=== PATIENT | female | born 1985 | race Caucasian/White ===

== ENCOUNTER 2021-04-03 15:13 | Emergency (ER) | payer MEDICAID, SELFPAY ==
[2021-04-03 15:47] VITALS: BP 111/61; PULSE 87; RESP 18; TEMP 37; O2SAT 100; BMI 28.1
[2021-04-03 16:56] LABS: MANUAL DIFF FLAG NO
[2021-04-03 16:57] LABS: Basophils Percent Auto 0.1 % (0-2); Hematocrit 37.7 % (37.0-47.0); Hemoglobin 12.9 g/dl (12.0-16.0); Imm Gran Abs Auto 0.03 X10*3/uL (0.00-0.03); Imm Gran Pct Auto 0.3 % (0.0-0.4); Lymphocytes Percent Auto 8.9 % (20-40); Mean Corpuscular HGB Conc 34.2 g/dl (31.0-35.0); Mean Corpuscular Hemoglobin 30.9 pg (27.0-33.0); Mean Corpuscular Volume 90.2 fL (80.0-98.0); Mean Platelet Volume 10.3 fL (9.4-12.3); Monocytes Absolute Auto 0.4 X10*3/uL (0.1-1.2); Monocytes Percent Auto 3.5 % (2-11); Neutrophils Absolute Auto 9.8 x10*3/uL (2.0-8.3); Neutrophils Percent Auto 87.2 % (45-73); Platelet Count 241 X10*3/uL (160-400); Red Blood Count 4.18 X10*6/uL (4.20-5.50); Red Cell Distribution Width 12.4 % (11.0-16.0); White Blood Count 11.2 X10*3/uL (4.8-10.8)
[2021-04-03 16:59] LABS: Appearance Urine CLEAR; Color Urine YELLOW; Glucose Urine UA NEG (NEG); Leukocyte Esterase Urine NEG (NEG); Nitrite Urine NEG (NEG); UACC Culture Trigger NO; Urine Blood 3+ (NEG); Urine Ketones 5 MG/DL (NEG); Urine Protein TRACE MG/DL (NEG-TRACE)
[2021-04-03 17:03] LABS: UPreg QC Valid YES; Urine Pregnancy NEGATIVE (NEGATIVE)
[2021-04-03 17:10] LABS: COVID-19 Test Negative (Negative)
[2021-04-03 17:15] LABS: Alanine Aminotransferase 32 U/L (0-31); Albumin Level 4.6 g/dL (3.5-5.0); Alkaline Phosphatase 64 U/L (39-117); Anion Gap 15 (12-20); Aspartate Amino Transferase 24 U/L (5-31); Bilirubin Direct 0.2 mg/dL (0.0-0.5); Bilirubin Total 0.3 mg/dL (0.0-1.0); Blood Urea Nitrogen 9 mg/dL (9-16); Calcium 9.7 mg/dL (8.4-10.2); Carbon Dioxide 25 mmol/L (22-29); Chloride 102 mmol/L (96-108); Creatinine Clr Calc Pharmacy 101.9; Estimated Glomerular Filt Rate > 60; Glucose Random 111 mg/dL (60-115); Potassium 3.8 mmol/L (3.3-5.1); Sodium 138 mmol/L (135-145); Total Protein 7.7 g/dL (6.5-8.0)
[2021-04-03 17:51] LABS: Bacteria Urine 1+ /LPF; Mucus Urine 3+ /LPF; Squamous Epithelial Cell Urine 2+ /LPF; WBC Urine 0-2 /HPF (0-4)
[2021-04-03 21:33] VITALS: BP 136/72; PULSE 75; RESP 18; TEMP 36.9; O2SAT 100
== END 2021-04-03 22:14 | disposition left against medical advice (07) ==
PROVIDERS: Emergency Provider Emergency Medicine; PCP Internal Medicine Geriatric Medicine
DX: R10.9 Unspecified abdominal pain (principal); Z20.822 Contact with and (suspected) exposure to COVID-19
CPT/HCPCS: 36415; 80048; 80076; 81001; 81003; 81025; 85025; 87635; 99283

== ENCOUNTER 2021-04-04 07:58 | Inpatient (IN) | payer MEDICAID, SELFPAY ==
--- NOTE | ~2021-04-04 | CT_ITS ---
EXAMINATION: CT ABDOMEN AND PELVIS WITH CONTRAST CLINICAL INFORMATION: Enteritis COMPARISON: CT abdomen pelvis 04/04/2021 TECHNIQUE: Multidetector volumetric images were obtained from the superior aspect of the liver through the pubic symphysis following administration 85 mL of Omnipaque 350 intravenous contrast. Sagittal and coronal reformatted images were obtained on the technologist's workstation. Oral contrast: Yes This CT examination was performed using dose optimization techniques as appropriate, variously including the following: *Automated exposure control *Adjustment of mA and/or kV according to patient size (this includes techniques or standardized protocols for targeted exams where dose is matched to indication/reason for exam; i.e. extremities or head) *Use of iterative reconstruction technique DLP: 44 mGy-cm FINDINGS: LUNG BASES: The visualized lung bases are unremarkable. ABDOMINAL AND PELVIC WALL: Small fat-containing umbilical hernia. LIVER AND BILIARY TREE: Focal fat along the falciform ligament. GALLBLADDER: Unremarkable PANCREAS: Unremarkable SPLEEN: Unremarkable ADRENAL GLANDS: A 1.2 centimeter indeterminate left adrenal nodule, 63 Hounsfield units and homogeneous attenuation. KIDNEYS AND URETERS: Unremarkable. UPPER GASTROINTESTINAL TRACT: The stomach and duodenum are unremarkable. VASCULAR: Retroaortic left renal vein LYMPH NODES: No lymphadenopathy. BLADDER: Unremarkable PELVIC VISCERA: Unremarkable LOWER GASTROINTESTINAL TRACT: Interval resolution of the previously seen mildly dilated loops of small bowel. Enteric contrast is noted throughout the colon. There is a persistent clustered appearance of loops of small bowel in the left upper quadrant. Normal appendix. OSSEOUS STRUCTURES: Unremarkable CT/CT abdomen pelvis w con IMPRESSION: Interval resolution of previously seen dilated loops of small bowel compatible with resolved small bowel obstruction. There is a persistent clustered appearance of loops of small bowel in the left upper quadrant, which given prior findings of bowel obstruction could possibly reflect a left paraduodenal internal hernia if patient's clinical symptoms are appropriate. Stable 1.2 cm homogeneous left adrenal nodule. Assuming patient has no history of malignancy recommend one-year follow-up adrenal washout CT to assess stability.
--- NOTE | ~2021-04-04 | CT_ITS ---
EXAMINATION: CT ABDOMEN AND PELVIS WITH CONTRAST CLINICAL INFORMATION: Left lower quadrant pain COMPARISON: July 11, 2018 TECHNIQUE: Multidetector volumetric images were obtained from the superior aspect of the liver through the pubic symphysis following administration 85 mL of Omnipaque 350 intravenous contrast. Sagittal and coronal reformatted images were obtained on the technologist's workstation. Oral contrast: No This CT examination was performed using dose optimization techniques as appropriate, variously including the following: *Automated exposure control *Adjustment of mA and/or kV according to patient size (this includes techniques or standardized protocols for targeted exams where dose is matched to indication/reason for exam; i.e. extremities or head) *Use of iterative reconstruction technique DLP: 626 mGy-cm FINDINGS: LUNG BASES: The visualized lung bases are unremarkable. No pleural or pericardial effusion. LIVER, GALLBLADDER, AND BILIARY TREE: The liver is normal in size, shape, and attenuation. No focal hepatic lesion or biliary ductal dilatation is present. The gallbladder is unremarkable with no evidence of radiopaque gallstones, gallbladder wall thickening, or obvious pericholecystic inflammatory changes. PANCREAS: Unremarkable. SPLEEN: Unremarkable. ADRENAL GLANDS: There is a 1.2 cm left adrenal gland nodule. Right adrenal gland unremarkable. KIDNEYS AND URETERS: The kidneys are normal in size, shape, and attenuation. No hydronephrosis, hydroureter, or calculi seen. No perinephric stranding. There is a subcentimeter angiomyolipomas seen lower pole of the right kidney. BLADDER: Unremarkable. GASTROINTESTINAL TRACT: No free air or free fluid is seen. There is mild diverticulosis of the sigmoid colon without evidence of acute diverticulitis. No definite pericolonic inflammation is seen. The appendix is visualized and appears unremarkable. Within the left upper quadrant and mid abdomen there are a few loops of mildly distended small bowel with a matted appearance and difficulty in out fat planes. These loops appear to be jejunum. More distal loops of bowel are decompressed. I cannot rule out early or partial small bowel obstruction at this level and continued follow-up is recommended. ABDOMINAL WALL: There is a small fat-containing umbilical hernia. LYMPH NODES: No lymphadenopathy appreciated. VASCULAR: Unremarkable. PELVIC VISCERA: Unremarkable. OSSEOUS STRUCTURES: Unremarkable. CT/CT abdomen pelvis w con IMPRESSION: 1.2 cm left adrenal gland nodule. Region of loops of jejunum with a somewhat matted appearance with fat planes being obscured within the mid and upper left abdomen which may be related to an early or partial small bowel obstruction.
[2021-04-04 08:08] VITALS: BP 139/84; PULSE 86; RESP 16; TEMP 36.6; O2SAT 96
[2021-04-04 11:13] VITALS: BP 141/86; PULSE 80; RESP 18; TEMP 36.6; O2SAT 98; BMI 28.1
--- NOTE | 2021-04-04 13:32 | ED_ITS ---
HPI - Nausea/Vomiting/Diarrhea General Chief complaint: Nausea/Vomiting/Diarrhea Stated complaint: Vomiting Time Seen by Provider: 04/04/21 08:36 Source: patient Mode of arrival: ambulatory Limitations: no limitations History of Present Illness HPI Narrative: 35 yo F pmhx anxiety,migranes presents to the emergency d [facility] with complaints of abdominal pain, nausea and vomiting X2 days. Patient tells me that she is experiencing constant, aching pain to her left lower quadrant, she tells me it is severe in nature, she cannot tell me what exacerbates the pain or makes it better. She also tells me that she has been having associated anorexia, nausea and vomiting. She tells me each time she tries to eat she vomits, she tells me she has vomited so much that at this point she is dry heaving. Before she was vomiting food contents and a watery vomit. She tells me that she thinks she may have eaten something a few days ago that was bad because she started having abdominal pain after eating this, she does not remember what she ate. She can not quantify how many times she has vomited. Intermittent chills are reported. She denies diarrhea, chest pain, fevers, shortness of breath, headache, dizziness, weakness, back pain, dysuria. No hx of kidney stones or diverticulitis. MD elicited complaint: nausea, vomiting and abdominal pain Onset (ago): day(s) (2) Description of vomiting: watery Associated nausea: Yes Associated abdominal pain: Yes Location of pain: LLQ Pain consistency: constant Severity: severe Pain scale (0-10): 10 Quality: aching and constant Exacerbating factors: none Relieving factors: none Associated symptoms: fever/chills and fatigue Related Data Previous Rx's Medication Instructions Recorded ondansetron 4 mg disintegrating 4 mg PO ONCE PRN #10 tab 04/04/21 tablet Allergies Allergy/AdvReac Type Severity Reaction Status Date / Time No Known Allergies Allergy Unknown U Unverified 12/26/19 17:27 none Allergy Unknown Uncoded 12/31/18 00:00 Review of Systems Review of Systems: Constitutional : No Weight loss, No Fever, No Chills, + Fatigue, No Malaise ENT/Mouth : No sore throat, No Rhinorrhea Eyes: No Eye Pain, No Swelling, No Redness Cardiovascular : No Chest Pain, No SOB, No Dyspnea on Exertion, No Orthopnea, No Edema, No Palpitations Respiratory : No Cough, No Sputum, No Wheezing Gastrointestinal : + Nausea, + Vomiting, No Diarrhea, No Constipation, + abdominal Pain, No Hematochezia, No Melena Genitourinary : No Dysuria, No Urinary Frequency, No Hematuria, Musculoskeletal : No joint pain, No Myalgias, No Joint Swelling Skin : No Skin Lesions, No rash Neuro : No Weakness, No Numbness, No Dizziness, No Headache All other systems reviewed and are negative Yes all other systems are reviewed and are negative Gastrointestinal: Gastrointestinal: Reports nausea PMFSH Past Medical History Attestation statement: The following information was validated with the patient. Source: old records reviewed and nursing notes reviewed Medical History Anxiety Migraine Social History Social History Advance Directives: No Advance Directives Information Provided: No Patient : No Physical Exam Vital Signs: Vital Signs: Last Vital Signs Temp 98.3 F 04/04/21 15:15 Pulse 67 04/04/21 15:15 Resp 12 04/04/21 15:15 BP 114/59 L 04/04/21 15:15 Pulse Ox 100 04/04/21 15:15 BMI result Body Mass Index 28.1 VSS slightly hypertensive. Appearance: Alert.? Oriented X3.? No acute distress.? Head: Normocephalic, atraumatic, no step-offs or deformities Eyes: Pupils equal, round and reactive to light.? ENT: Pharynx normal.? Neck: Normal inspection.? Neck supple.? CVS: Normal heart rate and rhythm.? Pulses normal.? Respiratory: No respiratory distress.? Breath sounds normal.? Abdomen: Soft and + tender to LLQ.? Skin: Skin warm and dry.? Normal skin color.? Normal skin turgor.? Extremities: No lower extremity edema.? No calf ttp. 5/5 strength to bilateral upper and lower extremities Back: No midline tenderness, no C-spine tenderness, full range of motion, no CVA tenderness bilaterally Neuro: Oriented X 3.? No motor deficit.? No sensory deficit. Course Reevaluation(s) Reevaluation #1: Patient is noted to have slight leukocytosis, likely reactive secondary to nausea and vomiting. No acute electrolyte abnormalities. Urine negative. Patient's amylase and lipase are not elevated 3 times the upper limit, unlikely that this is pancreatitis. Patient reports that nausea has improved with Zofran. At this time in CT of the abdomen and pelvis is pending. Time: 16:48 Reevaluation #2: Ct shows possible partial obstruction and an adrenal nodule. Both of these findings discussed with patient. Will reach out to Dr. Marc surgery for guidance on need for an NG tube. Time: 18:23 Reevaluation #3: Patient is not feel comfortable being discharged home, she tells me that when she tries to eat and drink she is feeling nauseous. At this time Dr. Vigil states that he will admit patient to the surgical service. I ordered zofran and Toradol as well as a third liter of fluids. Time: 18:35 MDM - Nausea/Vomiting/Diarrhea MDM Narrative Medical decision making narrative: 1335 35 yo F pmhx anxiety, migranes presents to ED with LLQ abdominal pain, anorexia, N/V X2 days. Physical exam significant for tenderness to LLQ upon palpaiton. Plan- labs, fluids, zofran. CT abdomen/pelvis. Medical Records Attestation: I reviewed the patient's medical records. Lab Data Attestation: I reviewed the patient's lab results. Result diagrams: 04/04/21 14:00 04/04/21 14:27 Labs: Lab Results 04/04/21 04/04/21 04/04/21 Range/Units 13:15 14:00 14:27 WBC 11.2 H (4.8-10.8) X10*3/uL RBC 4.44 (4.20-5.50) X10*6/uL Hgb 13.8 (12.0-16.0) g/dl Hct 39.9 (37.0-47.0) % MCV 89.9 (80.0-98.0) fL MCH 31.1 (27.0-33.0) pg MCHC 34.6 (31.0-35.0) g/dl RDW 12.5 (11.0-16.0) % Plt Count 252 (160-400) X10*3/uL MPV 10.4 (9.4-12.3) fL Immature Gran % (Auto) 0.3 (0.0-0.4) % Neut % (Auto) 67.4 (45-73) % Lymph % (Auto) 24.0 (20-40) % [place] % (Auto) 7.2 (2-11) % Eos % (Auto) 0.8 (0-4) % Baso % (Auto) 0.3 (0-2) % Lymph # (Auto) 2.7 (1.2-4.9) X10*3/uL [place] # (Auto) 0.8 (0.1-1.2) X10*3/uL Eos # (Auto) 0.1 (0.0-0.4) X10*3/uL Baso # (Auto) 0.0 (0.0-0.2) X10*3/uL Abs Immat Gran (auto) 0.03 (0.00-0.03) X10*3/uL Absolute Neuts (auto) 7.6 (2.0-8.3) x10*3/uL Absolute Nucleated RBC 0.000 (0.0-0.012) X10*3/uL Nucleated RBC % (auto) 0.0 (0.0-0.2) /100WBC Sodium 140 (135-145) mmol/L Potassium 3.5 (3.3-5.1) mmol/L Chloride 104 (96-108) mmol/L Carbon Dioxide 27 (22-29) mmol/L Anion Gap 13 (12-20) BUN 14 D (9-16) mg/dL Creatinine 0.89 (0.5-1.4) mg/dL Estim Creat Clear Calc 95.1 Estimated GFR > 60 Random Glucose 90 (60-115) mg/dL Calcium 9.5 (8.4-10.2) mg/dL Magnesium 2.1 (1.6-2.6) mg/dL Total Bilirubin 0.4 (0.0-1.0) mg/dL AST 26 (5-31) U/L ALT 30 (0-31) U/L Alkaline Phosphatase 60 (39-117) U/L Total Protein 7.6 (6.5-8.0) g/dL Albumin 4.6 (3.5-5.0) g/dL Amylase 116 H (28-100) U/L Lipase 177 H (8-78) U/L Beta HCG, Quant < 2 mIU/mL COVID-19 (ALEX) Negative (Negative) COVID-19 Clin Com See Note Imaging Data CT scan - abdomen: Attestation: I personally reviewed and interpreted this imaging study as follows: Radiologist's impression: CT/CT abdomen pelvis w con IMPRESSION: 1.2 cm left adrenal gland nodule. ? Region of loops of jejunum with a somewhat matted appearance with fat planes being obscured within the mid and upper left abdomen which may be related to an early or partial small bowel obstruction. ? Critical Care Time Critical Care Time Critical Care Time: Yes Total Critical Care Time: 40 Attestation: I attest to this time spent taking care of the patient, obtaining history/p hysical, starting an IV, administering fluids, interpreting labs and imaging, reaching out to surgery for consultation. Discharge Plan Discharge Clinical Impression: Partial bowel obstruction, Adrenal nodule, Nausea & vomiting Patient Disposition: Admitted As Inpatient Instructions: Acute Nausea and Vomiting (ED) Additional Instructions: Take your medications as prescribed. If you were prescribed antibiotics today, it is important that you take your medication to their entirety, do not skip any doses, do not finish them early. Follow-up with your primary care provider this week. A nodule was noted to the left adrenal gland on CT, please follow up with your PCT to discuss this finding. Return to the emergency department with new or worsening symptoms. In case of emergency call 911 Prescriptions: New ondansetron 4 mg tablet,disintegrating 4 mg PO ONCE PRN (Reason: nausea and vomiting) Qty: 10 RF: 0 Referrals: Name,MD Tobin [Primary Care Provider] - 2 days Stand Alone Forms: Work/School Release
[2021-04-04 13:42] LABS: COVID-19 Test Negative (Negative)
[2021-04-04 14:05] LABS: MANUAL DIFF FLAG NO
[2021-04-04 14:07] LABS: Basophils Percent Auto 0.3 % (0-2); Eosinophils Absolute Auto 0.1 X10*3/uL (0.0-0.4); Eosinophils Percent Auto 0.8 % (0-4); Hematocrit 39.9 % (37.0-47.0); Hemoglobin 13.8 g/dl (12.0-16.0); Imm Gran Abs Auto 0.03 X10*3/uL (0.00-0.03); Imm Gran Pct Auto 0.3 % (0.0-0.4); Lymphocytes Absolute Auto 2.7 X10*3/uL (1.2-4.9); Mean Corpuscular HGB Conc 34.6 g/dl (31.0-35.0); Mean Corpuscular Hemoglobin 31.1 pg (27.0-33.0); Mean Corpuscular Volume 89.9 fL (80.0-98.0); Mean Platelet Volume 10.4 fL (9.4-12.3); Monocytes Absolute Auto 0.8 X10*3/uL (0.1-1.2); Monocytes Percent Auto 7.2 % (2-11); Neutrophils Absolute Auto 7.6 x10*3/uL (2.0-8.3); Neutrophils Percent Auto 67.4 % (45-73); Platelet Count 252 X10*3/uL (160-400); Red Blood Count 4.44 X10*6/uL (4.20-5.50); Red Cell Distribution Width 12.5 % (11.0-16.0); White Blood Count 11.2 X10*3/uL (4.8-10.8)
[2021-04-04] MEDS: ondansetron HCL 4 MG/2 ML VIAL IVPUSH ×2 (14:52→19:56)
[2021-04-04] MEDS: 0.9 % Sodium Chloride 1,000 ML 999 ML IV ×2 (14:52→16:16)
[2021-04-04 14:59] LABS: Alanine Aminotransferase 30 U/L (0-31); Albumin Level 4.6 g/dL (3.5-5.0); Alkaline Phosphatase 60 U/L (39-117); Anion Gap 13 (12-20); Aspartate Amino Transferase 26 U/L (5-31); Bilirubin Total 0.4 mg/dL (0.0-1.0); Blood Urea Nitrogen 14 mg/dL (9-16); Calcium 9.5 mg/dL (8.4-10.2); Carbon Dioxide 27 mmol/L (22-29); Chloride 104 mmol/L (96-108); Creatinine Clr Calc Pharmacy 95.1; Estimated Glomerular Filt Rate > 60; Glucose Random 90 mg/dL (60-115); Magnesium 2.1 mg/dL (1.6-2.6); Potassium 3.5 mmol/L (3.3-5.1); Sodium 140 mmol/L (135-145); Total Protein 7.6 g/dL (6.5-8.0)
[2021-04-04 15:15] VITALS: BP 114/59; PULSE 67; RESP 12; TEMP 36.8; O2SAT 100
[2021-04-04 15:28] LABS: HCG Quantitative < 2 mIU/mL
[2021-04-04 15:58] LABS: Lipase 177 U/L (8-78)
[2021-04-04 16:17] LABS: Amylase 116 U/L (28-100)
[2021-04-04] MEDS: iohexoL 350 MG/ML 100 ML INFUS..BTL 85 ML IV (16:20)
[2021-04-04 19:47] VITALS: BP 118/61; PULSE 58; RESP 16; TEMP 36.8; O2SAT 100
[2021-04-04] MEDS: Ketorolac Tromethamine 30 MG/ML VIAL IVPUSH (19:56)
[2021-04-04] MEDS: 0.9 % Sodium Chloride 1,000 ML 100 ML IVCONT (19:57)
--- NOTE | 2021-04-04 20:44 | PC.NURSE ---
assumed care of pt at 1900, multiple medications not given d/t high pt number, low nursing ratio. pt medicated per jun. pt informed of NPO status and made aare of plan to admit to the hosptial, she is awaiting inpatient bed assignement.
[2021-04-05] MEDS: Morphine Sulfate 2 MG/ML CARTRIDGE IVPUSH ×3 (02:49→13:36)
--- NOTE | 2021-04-05 03:01 | PC.NURSE ---
Pt a&o, no sob or chest pain. medicated per Jun.
[2021-04-05 04:51] VITALS: BP 110/51; PULSE 67; RESP 16; TEMP 36.8; O2SAT 100
[2021-04-05] MEDS: 0.9 % Sodium Chloride 1,000 ML 100 ML IVCONT ×2 (04:56→18:32)
--- NOTE | 2021-04-05 04:58 | PC.NURSE ---
pt medicated per mar. no n/v. no sign of distress at this time.
[2021-04-05 07:10] LABS: Hematocrit 33.8 % (37.0-47.0); Hemoglobin 11.4 g/dl (12.0-16.0); Mean Corpuscular HGB Conc 33.7 g/dl (31.0-35.0); Mean Corpuscular Hemoglobin 30.8 pg (27.0-33.0); Mean Corpuscular Volume 91.4 fL (80.0-98.0); Mean Platelet Volume 10.6 fL (9.4-12.3); Platelet Count 188 X10*3/uL (160-400); Red Cell Distribution Width 12.4 % (11.0-16.0); White Blood Count 7.9 X10*3/uL (4.8-10.8)
[2021-04-05 07:39] LABS: Anion Gap 9 (12-20); Blood Urea Nitrogen 12 mg/dL (9-16); Calcium 8.2 mg/dL (8.4-10.2); Carbon Dioxide 25 mmol/L (22-29); Chloride 109 mmol/L (96-108); Creatinine Clr Calc Pharmacy 111.4; Estimated Glomerular Filt Rate > 60; Glucose Random 78 mg/dL (60-115); Potassium 3.7 mmol/L (3.3-5.1); Sodium 139 mmol/L (135-145)
[2021-04-05 07:42] VITALS: BP 104/48; PULSE 61; RESP 16; TEMP 36.7; O2SAT 99
--- NOTE | 2021-04-05 08:38 | P.HPGS_ITS ---
History of Present Illness History of Present Illness Date of Service: 04/05/21 <Emmy Ruiz PA-C - Last Filed: 04/05/21 09:13> 04/05/21 <Ramon Marc MD - Last Filed: 04/05/21 10:18> Chief complaint: abdominal pain <Emmy Ruiz PA-C - Last Filed: 04/05/21 09:13> Narrative: Nica Marc is a 35 year old female with PMH of anxiety, asthma who presented to the ED with complaints of LUQ abd pain. She reports the pain actually started on 04/03. She was having Cristal dinner and shortly after developed the LUQ pain with nausea and multiple episodes of vomiting. The pain waxes and wanes in severity but is sharp in nature. She presented to the ED that day but was not seen for several hours and left. The pain persisted at home and she decided to come to the ED again yesterday. She reports last passing flatus yesterday. She has not vomited since yesterday. She denies fever, chills, rhett rrhea, abdominal distention. She had a tubal ligation but denies any other abdominal surgeries. She denies sick contacts with similar symptoms, prior episodes of similar pain. Work up in the ED included a CT scan which showed mildly distended small bowel in the LUQ with a matted appearance with distal loops of bowel are decompressed. <Emmy Ruiz PA-C - Last Filed: 04/05/21 09:13> Review of Systems Constitutional: Constitutional: Denies chills, Denies fever(s) and Denies malaise <Emmy Ruiz PA-C - Last Filed: 04/05/21 09:13> Cardiovascular: Cardiovascular: Denies chest pain, Denies palpitations and Denies dyspnea <EDU Gillis Last Filed: 04/05/21 09:13> Respiratory: Respiratory: Denies cough and Denies dyspnea <EDU Gillis Last Filed: 04/05/21 09:13> Gastrointestinal: Gastrointestinal: Reports as per HPI, Denies change in bowel habits, Denies coffee ground emesis and Denies hematemesis <EDU Gillis Last Filed: 04/05/21 09:13> Genitourinary: Genitourinary: Denies hematuria and Denies dysuria <Emmy Ruiz PA-C - Last Filed: 04/05/21 09:13> Integumentary/Breasts: Skin/Breast: Denies rash <Emmy Ruiz PA-C - Last Filed: 04/05/21 09:13> Endocrine: Endocrine: Denies palpitations <Emmy Ruiz PA-C - Last Filed: 04/05/21 09:13> [facility] [place] Past Medical History Medical History: Medical History (Updated 04/05/21 @ 09:09 by Emmy Ruiz PA-C) Anxiety Asthma Migraine <Emmy Ruiz PA-C - Last Filed: 04/05/21 09:13> Surgical History Surgical History: Surgical History (Updated 04/05/21 @ 09:07 by Emmy Ruiz PA-C) History of ankle surgery Tubal ligation status <Emmy Ruiz PA-C - Last Filed: 04/05/21 09:13> Social History Social History: Social History Patient Tobacco Use Status: Current everyday Tobacco user Use of substances other than those prescribed or required for medical reasons: No Advance Directives: No Advance Directives Information Provided: No Patient : No <Emmy Ruiz PA-C - Last Filed: 04/05/21 09:13> Meds Allergies/Adverse reactions: Allergies Allergy/AdvReac Type Severity Reaction Status Date / Time No Known Allergies Allergy Unknown U Unverified 12/26/19 17:27 none Allergy Unknown Uncoded 12/31/18 00:00 <Emmy Ruiz PA-C - Last Filed: 04/05/21 09:13> Active Medications: Current Medications Sodium Chloride (Ns) 1,000 mls @ 100 mls/hr IVCONT .Q10H MERRITT Last Admin: 04/05/21 04:56 Dose: 100 mls/hr Documented by: Morphine Sulfate (Morphine Sulfate 2 Mg/Ml Cartridge) 2 mg IVPUSH Q4H PRN; Protocol PRN Reason: Pain, Severe (Pain Scale 7-10) Last Admin: 04/05/21 02:49 Dose: 2 mg Documented by: Ondansetron HCl (Ondansetron Hcl 4 Mg/2 Ml Vial) 4 mg IVPUSH Q8H PRN PRN Reason: nausea Pharmacy Consult (Consult Rx Perform Med Rec) 1 each MISCELLANE ONCE PRN PRN Reason: Consult order Sodium Chloride (0.9 % Sodium Chloride Flush 3 Ml Syringe) 3 ml IVFLUSH QSHIFT [facility] Last Admin: 04/05/21 02:51 Dose: Not Given Documented by: <EDU Gillis Last Filed: 04/05/21 09:13> Home medications: Home Medications Medication Instructions Recorded Confirmed Last Taken Type lorazepam 0.5 mg tablet 1 tab PO DAILY PRN 04/05/21 04/05/21 04/04/21 History <EDU Gillis Last Filed: 04/05/21 09:13> Physical Exam Vital Signs: Vital Signs: Last Vital Signs Temp 98.0 F 04/05/21 07:42 Pulse 61 04/05/21 07:42 Resp 16 04/05/21 07:42 BP 104/48 L 04/05/21 07:42 Pulse Ox 99 04/05/21 07:42 BMI result Body Mass Index 28.1 <EDU Gillis Last Filed: 04/05/21 09:13> Const: General: comfortable, no acute distress and alert <EDU Gillis Last Filed: 04/05/21 09:13> Orientation/consciousness: patient oriented x3 <EDU Gillis Last Filed: 04/05/21 09:13> Resp: Effort & Inspection: normal respiratory effort <EDU Gillis Last Filed: 04/05/21 09:13> Cardio: Rate: regular rate <EDU Gillis Last Filed: 04/05/21 09:13> GI: Inspection: Yes normal to inspection and No distended <EDU Mayfield Last Filed: 04/05/21 09:13> Palpation (GI): Soft to palpation, Tenderness to palpation present (GI) in the LUQ (mild), no guarding and not rigid <EDU Gillis Last Filed: 04/05/21 09:13> Percussion: Yes normal to percussion <EDU Gillis Last Filed: 04/05/21 09:13> Skin: General skin exam: no rashes or lesions noted <EDU Gillis Last Filed: 04/05/21 09:13> Neuro: General: patient oriented x3 <EDU Gillis Last Filed: 04/05/21 09:13> Extrem: General: Yes no clubbing, cyanosis or edema <EDU Gillis Last Filed: 04/05/21 09:13> Results Results Labs: Short CBC 04/04/21 04/05/21 Range/Units 14:00 06:45 WBC 11.2 H 7.9 (4.8-10.8) X10*3/uL Hgb 13.8 11.4 L (12.0-16.0) g/dl Hct 39.9 33.8 L (37.0-47.0) % Plt Count 252 188 D (160-400) X10*3/uL BMP 04/04/21 04/05/21 14:27 06:45 Sodium 140 139 Potassium 3.5 3.7 Chloride 104 109 H Carbon Dioxide 27 25 BUN 14 D 12 Creatinine 0.89 0.76 Calcium 9.5 8.2 L D Liver Function 04/04/21 Range/Units 14:27 Total Bilirubin 0.4 (0.0-1.0) mg/dL AST 26 (5-31) U/L ALT 30 (0-31) U/L Alkaline Phosphatase 60 (39-117) U/L Albumin 4.6 (3.5-5.0) g/dL <EDU Gillis Last Filed: 04/05/21 09:13> Assessment and Plan (1) Enteritis: Status: Acute <EDU Gillis Last Filed: 04/05/21 09:13> She has tenderness on the left upper quadrant A little better today CT scan reviewed - some thickening of jejunal loops in the left upper quadrant with poor planes suggestive of enteritis Good air distally Abdomen soft and benign NPO IV fluids Plan explained to patient Seen and examined - agree with TEO Ruiz <Ramon Marc MD - Last Filed: 04/05/21 10:18> 35 year old female admitted with LUQ abd pain and vomiting for 2 days. She is mildly tender in the LUQ. Review of the CT scan showed thickening of small bowel loops more consistent with enteritis. She is clinically not obstructed as her abdomen is soft, non distended and she reports passing flatus. The patient was admitted to the surgical service for further treatment. She is non toxic appearing with a benign abd exam. Will continue IVF, bowel rest for now and advance diet slowly as tolerated. Pain control. Encouraged OOB/ambulation today. Patient comfortable with plan. Patient seen and discussed with Dr. Marc. <Emmy Ruiz PA-C - Last Filed: 04/05/21 09:13> Quality Stroke Does the patient have a stroke diagnosis?: No <Emmy Ruiz PA-C - Last Filed: 04/05/21 09:13> VTE Prior VTE?: No <Emmy Ruiz PA-C - Last Filed: 04/05/21 09:13> VTE Risk Level:: Medical - low <Emmy Ruiz PA-C - Last Filed: 04/05/21 09:13> VTE Device Contraindication: Treatment Not Indicated <Emmy Ruiz PA-C - Last Filed: 04/05/21 09:13> VTE Drug Contraindication: Treatment Not Indicated <Emmy Ruiz PA-C - Last Filed: 04/05/21 09:13> Procedures Date of Service Date of Service: 04/05/21 <Emmy Ruiz PA-C - Last Filed: 04/05/21 09:13>
--- NOTE | 2021-04-05 08:40 | PHA.MEDREC ---
Pharmacy Consult ? Medication Reconciliation Pharmacy has completed the medication reconciliation Spoke with patient in the ED. .
--- NOTE | 2021-04-05 09:09 | PC.NURSE ---
PTUP TO BR.C/O H/A. MED PER JUN.
[2021-04-05] MEDS: Acetaminophen 325 MG TABLET 650 MG PO (13:36)
--- NOTE | 2021-04-05 14:47 | MHC.CM.PN ---
pt lives in [address] her son, she reports that she is independent in her care. she works a job and drives a car. pt does have family that live in the area and can help her should she have any needs . family will provide transportation at dc. pt does not use any AD c ambulation and has no svcs at home. pt denies the need for vna at dc. dc plan is home no svcs. cm to cont. to follow.
[2021-04-05 15:45] VITALS: BP 100/58; PULSE 55; RESP 18; TEMP 36.9; O2SAT 100
[2021-04-05 16:00] VITALS: BP 124/72; PULSE 54; RESP 18; TEMP 36.6; O2SAT 97
[2021-04-05] MEDS: 0.9 % Sodium Chloride Flush 3 ML SYRINGE IVFLUSH (18:33)
[2021-04-05 19:27] VITALS: BP 122/71; PULSE 65; RESP 18; TEMP 36.2; O2SAT 100
[2021-04-06 00:17] VITALS: BP 125/61; PULSE 65; RESP 18; TEMP 36.6; O2SAT 98
[2021-04-06 00:19] VITALS: RESP 18
[2021-04-06] MEDS: Morphine Sulfate 2 MG/ML CARTRIDGE IVPUSH ×2 (00:19→09:00)
[2021-04-06] MEDS: 0.9 % Sodium Chloride 1,000 ML 100 ML IVCONT ×3 (04:29→22:50)
[2021-04-06 08:00] VITALS: BP 132/69; PULSE 63; RESP 16; TEMP 36.6; O2SAT 100
--- NOTE | 2021-04-06 08:03 | P.PNGS_ITS ---
Subjective Subjective Date of Service: 04/06/21 <Emmy Ruiz PA-C - Last Filed: 04/06/21 08:05> 04/06/21 <Ramon Marc MD - Last Filed: 04/06/21 11:16> Interval history: Feeling a little better. Pain improved. Passing flatus. Feels hungry. <Emmy Ruiz PA-C - Last Filed: 04/06/21 08:05> Physical Exam Vital Signs: Vital Signs: Last Vital Signs Temp 98 F 04/06/21 00:17 Pulse 65 04/06/21 00:17 Resp 18 04/06/21 00:19 BP 125/61 04/06/21 00:17 Pulse Ox 98 04/06/21 00:17 BMI result Body Mass Index 28.1 <mEmy Ruiz PA-C - Last Filed: 04/06/21 08:05> Const: General: comfortable and no acute distress <SABAS Gillis - Last Filed: 04/06/21 08:05> Orientation/consciousness: patient oriented x3 <Emmy Ruiz PA-C - Last Filed: 04/06/21 08:05> Resp: Effort & Inspection: normal respiratory effort <EDU Gillis Last Filed: 04/06/21 08:05> GI: Inspection: Yes normal to inspection and No distended <Emmy Ruzi PA-C - Last Filed: 04/06/21 08:05> Palpation (GI): Soft to palpation, Tenderness to palpation present (GI) (mild, LUQ) and no guarding <Emmy Ruiz PA-C - Last Filed: 04/06/21 08:05> Percussion: Yes normal to percussion <Emmy Ruiz PA-C - Last Filed: 04/06/21 08:05> Skin: General skin exam: no rashes or lesions noted <EDU Gillis Last Filed: 04/06/21 08:05> Neuro: General: patient oriented x3 <EDU Gillis Last Filed: 04/06/21 08:05> Objective Data Active Medications Acetaminophen (Acetaminophen 325 Mg Tablet) 650 mg PO Q6H PRN PRN Reason: Pain, Mild (Pain Scale 1-3) Last Admin: 04/05/21 13:36 Dose: 650 mg Documented by: JUAN Sodium Chloride (Ns) 1,000 mls @ 100 mls/hr IVCONT .Q10H [facility] Last Admin: 04/06/21 04:29 Dose: 100 mls/hr Documented by: WILLARD Morphine Sulfate (Morphine Sulfate 2 Mg/Ml Cartridge) 2 mg IVPUSH Q4H PRN; Protocol PRN Reason: Pain, Severe (Pain Scale 7-10) Last Admin: 04/06/21 00:19 Dose: 2 mg Documented by: WILLARD Ondansetron HCl (Ondansetron Hcl 4 Mg/2 Ml Vial) 4 mg IVPUSH Q8H PRN PRN Reason: nausea Oxycodone HCl (Oxycodone Hcl Immed Release 5 Mg Tablet) 5 mg PO Q4H PRN PRN Reason: Pain, Moderate (Pain Scale 4-6 Pharmacy Consult (Consult Rx Perform Med Rec) 1 each MISCELLANE ONCE PRN PRN Reason: Consult order Sodium Chloride (0.9 % Sodium Chloride Flush 3 Ml Syringe) 3 ml IVFLUSH QSHIFT [facility] Last Admin: 04/05/21 18:33 Dose: 3 ml Documented by: MOHINDER <Emmy Ruiz PA-C - Last Filed: 04/06/21 08:05> Labs CBC & Chem 7: : 04/05/21 06:45 04/05/21 06:45 <Emmy Ruiz PA-C - Last Filed: 04/06/21 08:05> Procedures Date of Service Date of Service: 04/06/21 <Emmy Ruiz PA-C - Last Filed: 04/06/21 08:05> Progress Note: A&P Assessment and plan (1) Enteritis: Status: Acute <Emmy Ruiz PA-C - Last Filed: 04/06/21 08:05> Assessment and Plan: feels much better still with pain but much improved passing flatus no vomiting clear liquids today abdomen remains soft and benign seen and examined - agree with TEO Ruiz <Ramon Marc MD - Last Filed: 04/06/21 11:16> Assessment and Plan: 35 year old female admitted with abd pain, nausea and vomiting found to have enteritis on CT scan. Patient feels improved with supportive measures. Will advance to clear liquid diet and then further as tolerated. Patient comfortable with plan. <Emmy Ruiz PA-C - Last Filed: 04/06/21 08:05> Fall Risk Details Current Medications: Current Medications Acetaminophen (Acetaminophen 325 Mg Tablet) 650 mg PO Q6H PRN PRN Reason: Pain, Mild (Pain Scale 1-3) Last Admin: 04/05/21 13:36 Dose: 650 mg Documented by: Sodium Chloride (Ns) 1,000 mls @ 100 mls/hr IVCONT .Q10H [facility] Last Admin: 04/06/21 04:29 Dose: 100 mls/hr Documented by: Morphine Sulfate (Morphine Sulfate 2 Mg/Ml Cartridge) 2 mg IVPUSH Q4H PRN; Pr otocol PRN Reason: Pain, Severe (Pain Scale 7-10) Last Admin: 04/06/21 00:19 Dose: 2 mg Documented by: Ondansetron HCl (Ondansetron Hcl 4 Mg/2 Ml Vial) 4 mg IVPUSH Q8H PRN PRN Reason: nausea Oxycodone HCl (Oxycodone Hcl Immed Release 5 Mg Tablet) 5 mg PO Q4H PRN PRN Reason: Pain, Moderate (Pain Scale 4-6 Pharmacy Consult (Consult Rx Perform Med Rec) 1 each MISCELLANE ONCE PRN PRN Reason: Consult order Sodium Chloride (0.9 % Sodium Chloride Flush 3 Ml Syringe) 3 ml IVFLUSH QSHIFT [facility] Last Admin: 04/05/21 18:33 Dose: 3 ml Documented by: <Emmy Ruiz PA-C - Last Filed: 04/06/21 08:05> Time Spent With Patient Time: Total time spent is greater than 50% in coordination of care (as documented) at patient's floor/unit and/or counseling patient: <Emmy Ruiz PA-C - Last Filed: 04/06/21 08:05> Time with patient: 15 - 24 minutes <Emmy Ruiz PA-C - Last Filed: 04/06/21 08:05> Quality Stroke Does the patient have a stroke diagnosis?: No <Emmy Ruiz PA-C - Last Filed: 04/06/21 08:05> VTE Prior VTE?: No <Emmy Ruiz PA-C - Last Filed: 04/06/21 08:05> VTE Risk Level:: Medical - low <Emmy Ruiz PA-C - Last Filed: 04/06/21 08:05> VTE Device Contraindication: Treatment Not Indicated <Emmy Ruiz PA-C - Last Filed: 04/06/21 08:05> VTE Drug Contraindication: Treatment Not Indicated <Emmy Ruiz PA-C - Last Filed: 04/06/21 08:05>
[2021-04-06 16:00] VITALS: BP 134/78; PULSE 57; RESP 18; TEMP 36.7; O2SAT 100
[2021-04-06] MEDS: oxyCODONE HCl Immed Release 5 MG TABLET PO ×2 (17:29→22:17)
[2021-04-06 23:54] VITALS: BP 147/84; PULSE 55; RESP 17; TEMP 36.9; O2SAT 100
[2021-04-07] MEDS: oxyCODONE HCl Immed Release 5 MG TABLET PO ×4 (03:19→22:14)
[2021-04-07 07:58] VITALS: BP 136/74; PULSE 54; RESP 18; TEMP 36.3; O2SAT 100
[2021-04-07 08:00] VITALS: BP 136/71; PULSE 54; RESP 18; TEMP 36.3; O2SAT 100
[2021-04-07] MEDS: 0.9 % Sodium Chloride 1,000 ML 100 ML IVCONT (08:04)
[2021-04-07] MEDS: Morphine Sulfate 2 MG/ML CARTRIDGE IVPUSH (11:54)
--- NOTE | 2021-04-07 11:55 | P.PNGS_ITS ---
Subjective Subjective Date of Service: 04/07/21 <Emmy Ruiz PA-C - Last Filed: 04/07/21 11:58> 04/07/21 <Ramon Marc MD - Last Filed: 04/07/21 12:58> Interval history: Advanced to solid food this morning. Had some nausea following breakfast. Has been ambulating. Passing flatus. Some pain but well controlled with oxycodone. <Emmy Ruiz PA-C - Last Filed: 04/07/21 11:58> Physical Exam Vital Signs: Vital Signs: Last Vital Signs Temp 97.4 F 04/07/21 08:00 Pulse 54 04/07/21 08:00 Resp 18 04/07/21 08:00 BP 136/71 04/07/21 08:00 Pulse Ox 100 04/07/21 08:00 BMI result Body Mass Index 28.1 <Emmy Ruiz PA-C - Last Filed: 04/07/21 11:58> Const: General: no acute distress and alert <Emmy Ruiz PA-C - Last Filed: 04/07/21 11:58> Orientation/consciousness: patient oriented x3 <Emmy Ruiz PA-C - Last Filed: 04/07/21 11:58> GI: Inspection: Yes normal to inspection and No distended <Emmy Ruiz PA-C - Last Filed: 04/07/21 11:58> Palpation (GI): Soft to palpation, Tenderness to palpation present (GI) in the LUQ and no guarding <Emmy Ruiz PA-C - Last Filed: 04/07/21 11:58> Percussion: Yes normal to percussion <Emmy Ruiz PA-C - Last Filed: 04/07/21 11:58> Skin: General skin exam: no rashes or lesions noted <Emmy Ruiz PA-C - Last Filed: 04/07/21 11:58> Neuro: General: patient oriented x3 <Emmy Ruiz PA-C - Last Filed: 04/07/21 11:58> Extrem: General: Yes no clubbing, cyanosis or edema <Emmy Ruiz PA-C - Last Filed: 12/29/21 11:58> Objective Data Active Medications Acetaminophen (Acetaminophen 325 Mg Tablet) 650 mg PO Q6H PRN PRN Reason: Pain, Mild (Pain Scale 1-3) Last Admin: 04/05/21 13:36 Dose: 650 mg Documented by: JUAN Sodium Chloride (Ns) 1,000 mls @ 100 mls/hr IVCONT .Q10H [facility] Last Admin: 04/07/21 08:04 Dose: 100 mls/hr Documented by: CAREY Morphine Sulfate (Morphine Sulfate 2 Mg/Ml Cartridge) 2 mg IVPUSH Q4H PRN; Protocol PRN Reason: Pain, Severe (Pain Scale 7-10) Last Admin: 04/07/21 11:54 Dose: 2 mg Documented by: CAREY Ondansetron HCl (Ondansetron Hcl 4 Mg/2 Ml Vial) 4 mg IVPUSH Q8H PRN PRN Reason: nausea Oxycodone HCl (Oxycodone Hcl Immed Release 5 Mg Tablet) 5 mg PO Q4H PRN PRN Reason: Pain, Moderate (Pain Scale 4-6 Last Admin: 04/07/21 08:09 Dose: 5 mg Documented by: CAREY Pharmacy Consult (Consult Rx Perform Med Rec) 1 each MISCELLANE ONCE PRN PRN Reason: Consult order Sodium Chloride (0.9 % Sodium Chloride Flush 3 Ml Syringe) 3 ml IVFLUSH QSHIFT [facility] Last Admin: 04/07/21 08:04 Dose: Not Given Documented by: CAREY Non-Admin Reason: IV Running <Emmy Ruiz PA-C - Last Filed: 04/07/21 11:58> Labs CBC & Chem 7: : 04/05/21 06:45 04/05/21 06:45 <Emmy Ruiz PA-C - Last Filed: 04/07/21 11:58> Procedures Date of Service Date of Service: 04/07/21 <EDU Gillis Last Filed: 04/07/21 11:58> Progress Note: A&P Assessment and plan (1) Enteritis: Status: Acute <EDU Gillis Last Filed: 04/07/21 11:58> Assessment and Plan: feels better minimal pain abdomen soft, not tender possible DC if she continues to tolerate diet seen and examined - agree with TEO Ruiz plan discussed with as well <Ramon Marc MD - Last Filed: 04/07/21 12:58> Assessment and Plan: 35 year old female admitted with abd pain, nausea and vomiting found to have enteritis on CT scan. Patient feels improved with supportive measures. On solid diet now. Will reassess later today. If tolerating solid food without further nausea/vomiting or worsening pain, stable for d/c to home. D/c IVF. Patient comfortable with plan. <Emmy Ruiz PA-C - Last Filed: 04/07/21 11:58> Fall Risk Details Current Medications: Current Medications Acetaminophen (Acetaminophen 325 Mg Tablet) 650 mg PO Q6H PRN PRN Reason: Pain, Mild (Pain Scale 1-3) Last Admin: 04/05/21 13:36 Dose: 650 mg Documented by: Sodium Chloride (Ns) 1,000 mls @ 100 mls/hr IVCONT .Q10H [facility] Last Admin: 04/07/21 08:04 Dose: 100 mls/hr Documented by: Morphine Sulfate (Morphine Sulfate 2 Mg/Ml Cartridge) 2 mg IVPUSH Q4H PRN; Protocol PRN Reason: Pain, Severe (Pain Scale 7-10) Last Admin: 04/07/21 11:54 Dose: 2 mg Documented by: Ondansetron HCl (Ondansetron Hcl 4 Mg/2 Ml Vial) 4 mg IVPUSH Q8H PRN PRN Reason: nausea Oxycodone HCl (Oxycodone Hcl Immed Release 5 Mg Tablet) 5 mg PO Q4H PRN PRN Reason: Pain, Moderate (Pain Scale 4-6 Last Admin: 04/07/21 08:09 Dose: 5 mg Documented by: Pharmacy Consult (Consult Rx Perform Med Rec) 1 each MISCELLANE ONCE PRN PRN Reason: Consult order Sodium Chloride (0.9 % Sodium Chloride Flush 3 Ml Syringe) 3 ml IVFLUSH QSHIFT [facility] Last Admin: 04/07/21 08:04 Dose: Not Given Documented by: <Emmy Ruiz PA-C - Last Filed: 04/07/21 11:58> Time Spent With Patient Time: Total time spent is greater than 50% in coordination of care (as d ocumented) at patient's floor/unit and/or counseling patient: <Emmy Ruiz PA-C - Last Filed: 04/07/21 11:58> Time with patient: 15 - 24 minutes <Emmy Ruiz PA-C - Last Filed: 04/07/21 11:58> Quality Stroke Does the patient have a stroke diagnosis?: No <Emmy Ruiz PA-C - Last Filed: 04/07/21 11:58> VTE Prior VTE?: No <Emmy Ruiz PA-C - Last Filed: 04/07/21 11:58> VTE Risk Level:: Medical - low <Emmy Ruiz PA-C - Last Filed: 04/07/21 11:58> VTE Device Contraindication: Treatment Not Indicated <Emmy Ruiz PA-C - Last Filed: 04/07/21 11:58> VTE Drug Contraindication: Treatment Not Indicated <Emmy Ruiz PA-C - Last Filed: 04/07/21 11:58>
[2021-04-07] MEDS: LORazepam 0.5 MG TABLET PO (14:10)
[2021-04-07 14:29] VITALS: PULSE 62; TEMP 36.1
--- NOTE | 2021-04-07 15:35 | PM.EVENT ---
Event Note Date of Service: 04/07/21 Event Note: Seen on afternoon rounds Says she had significant nausea after eating regular food Will bring back to clear liquid diet only Abdomen remained soft although with mild tenderness on the left upper quadrant Repeat labs tomorrow Possibly repeat CT scan as well depending on clinical exam Discussed with as well
--- NOTE | 2021-04-07 15:36 | MHC.CM.PN ---
Female 35 DX AB PAIN She is an independent person. DP home no services, spouse will transport.
[2021-04-07 15:44] VITALS: BP 130/76; PULSE 63; RESP 16; TEMP 36.6; O2SAT 100
[2021-04-07] MEDS: 0.9 % Sodium Chloride Flush 3 ML SYRINGE IVFLUSH (16:13)
[2021-04-07] MEDS: Dextrose 5 % and 0.9 % NaCl 1,000 ML 80 ML IVCONT (16:14)
[2021-04-08] VITALS: BP 125/82; PULSE 60; RESP 17; TEMP 36.3; O2SAT 98
[2021-04-08] MEDS: Dextrose 5 % and 0.9 % NaCl 1,000 ML 80 ML IVCONT ×2 (04:50→20:15)
[2021-04-08] MEDS: Morphine Sulfate 2 MG/ML CARTRIDGE IVPUSH (04:56)
[2021-04-08 05:56] LABS: Hematocrit 31.7 % (37.0-47.0); Mean Corpuscular HGB Conc 34.7 g/dl (31.0-35.0); Mean Corpuscular Hemoglobin 31.2 pg (27.0-33.0); Mean Corpuscular Volume 89.8 fL (80.0-98.0); Mean Platelet Volume 10.7 fL (9.4-12.3); Platelet Count 209 X10*3/uL (160-400); Red Blood Count 3.53 X10*6/uL (4.20-5.50); Red Cell Distribution Width 12.1 % (11.0-16.0); White Blood Count 6.7 X10*3/uL (4.8-10.8)
[2021-04-08 06:23] LABS: Anion Gap 11 (12-20); Blood Urea Nitrogen 5 mg/dL (9-16); Calcium 8.4 mg/dL (8.4-10.2); Carbon Dioxide 25 mmol/L (22-29); Chloride 108 mmol/L (96-108); Creatinine Clr Calc Pharmacy 117.6; Estimated Glomerular Filt Rate > 60; Glucose Random 92 mg/dL (60-115); Potassium 3.5 mmol/L (3.3-5.1); Sodium 140 mmol/L (135-145)
[2021-04-08 07:19] VITALS: BP 119/69; PULSE 64; RESP 18; TEMP 36.4; O2SAT 96
--- NOTE | 2021-04-08 08:20 | P.PNGS_ITS ---
Subjective Subjective Date of Service: 04/08/21 <Emmy Ruiz PA-C - Last Filed: 04/08/21 08:23> 04/08/21 <Ramon Marc MD - Last Filed: 04/08/21 10:46> Interval history: Nausea yesterday after solid food. Able to tolerate broth last night. No further nausea, feels much improved this morning. Pain less. <Emmy Ruiz PA-C - Last Filed: 04/08/21 08:23> Physical Exam Vital Signs: Vital Signs: Last Vital Signs Temp 97.6 F 04/08/21 07:19 Pulse 64 04/08/21 07:19 Resp 18 04/08/21 07:19 BP 119/69 04/08/21 07:19 Pulse Ox 96 04/08/21 07:19 BMI result Body Mass Index 28.1 <Emmy Ruiz PA-C - Last Filed: 04/08/21 08:23> Const: General: comfortable, no acute distress and well developed <Emmy Ruiz PA-C - Last Filed: 04/08/21 08:23> Orientation/consciousness: patient oriented x3 <EDU Gillis Last Filed: 04/08/21 08:23> Resp: Effort & Inspection: normal respiratory effort <EDU Gillis Last Filed: 04/08/21 08:23> GI: Inspection: No distended <Emmy Ruiz PA-C - Last Filed: 04/08/21 08:23> Palpation (GI): Soft to palpation, Tenderness to palpation present (GI) in the LUQ (decreasing), no guarding and not rigid <Emmy Ruiz PA-C - Last Filed: 04/08/21 08:23> Percussion: Yes normal to percussion <EDU Gillis Last Filed: 04/08/21 08:23> Skin: General skin exam: no rashes or lesions noted <EDU Gillis Last Filed: 04/08/21 08:23> Neuro: General: patient oriented x3 <EDU Gillis Last Fi led: 04/08/21 08:23> Extrem: General: Yes no clubbing, cyanosis or edema <Emmy Ruiz PA-C - Last Filed: 04/08/21 08:23> Objective Data Active Medications Acetaminophen (Acetaminophen 325 Mg Tablet) 650 mg PO Q6H PRN PRN Reason: Pain, Mild (Pain Scale 1-3) Last Admin: 04/05/21 13:36 Dose: 650 mg Documented by: JUAN Dextrose/Sodium Chloride (D5ns) 1,000 mls @ 80 mls/hr IVCONT .[id number] [facility] Last Admin: 04/08/21 04:50 Dose: 80 mls/hr Documented by: DANDY Lorazepam (Lorazepam 0.5 Mg Tablet) 0.5 mg PO DAILY PRN PRN Reason: Anxiety Last Admin: 04/07/21 14:10 Dose: 0.5 mg Documented by: CAREY Morphine Sulfate (Morphine Sulfate 2 Mg/Ml Cartridge) 2 mg IVPUSH Q4H PRN; Protocol PRN Reason: Pain, Severe (Pain Scale 7-10) Last Admin: 04/08/21 04:56 Dose: 2 mg Documented by: DANDY Ondansetron HCl (Ondansetron Hcl 4 Mg/2 Ml Vial) 4 mg IVPUSH Q8H PRN PRN Reason: nausea Oxycodone HCl (Oxycodone Hcl Immed Release 5 Mg Tablet) 5 mg PO Q4H PRN PRN Reason: Pain, Moderate (Pain Scale 4-6 Last Admin: 04/07/21 22:14 Dose: 5 mg Documented by: MOHINDER Pharmacy Consult (Consult Rx Perform Med Rec) 1 each MISCELLANE ONCE PRN PRN Reason: Consult order Sodium Chloride (0.9 % Sodium Chloride Flush 3 Ml Syringe) 3 ml IVFLUSH QSHIFT [facility] Last Admin: 04/08/21 07:32 Dose: Not Given Documented by: DANDY Non-Admin Reason: IV Running <Emmy Ruiz PA-C - Last Filed: 04/08/21 08:23> Labs CBC & Chem 7: : 04/08/21 05:15 04/08/21 05:15 <Emmy Ruiz PA-C - Last Filed: 04/08/21 08:23> Labs: Laboratory Results - last 24 hr 04/08/21 04/08/21 05:15 05:15 MCV 89.8 MCH 31.2 MCHC 34.7 RDW 12.1 Plt Count 209 MPV 10.7 Absolute Nucleated RBC 0.000 Nucleated RBC % (auto) 0.0 Anion Gap 11 L Estim Creat Clear Calc 117.6 Estimated GFR > 60 Random Glucose 92 Calcium 8.4 <Emmy Ruiz PA-C - Last Filed: 04/08/21 08:23> Procedures Date of Service Date of Service: 04/08/21 <Emmy Ruiz PA-C - Last Filed: 04/08/21 08:23> Progress Note: A&P Assessment and plan (1) Enteritis: Status: Acute <Emmy Ruiz PA-C - Last Filed: 04/08/21 08:23> Assessment and Plan: She feels better this morning No nausea overnight Tolerating liquids Mild tenderness on the left upper quadrant Plan to repeat CT scan prior to re-advancing diet Clinically not obstructed Abdominal exam remains benign Labs okay this morning Seen and examined - agree with TEO Ruiz <Ramon Marc MD - Last Filed: 04/08/21 10:46> Assessment and Plan: 35 year old female admitted with abd pain, nausea and vomiting found to have enteritis on CT scan. Worsening nausea following solid food. Feels better this morning. Will obtain f/u CT scan with PO contrast today. If improved, advance back to solid diet. Pat ient comfortable with plan. <Emmy Ruiz PA-C - Last Filed: 04/08/21 08:23> Fall Risk Details Current Medications: Current Medications Acetaminophen (Acetaminophen 325 Mg Tablet) 650 mg PO Q6H PRN PRN Reason: Pain, Mild (Pain Scale 1-3) Last Admin: 04/05/21 13:36 Dose: 650 mg Documented by: Dextrose/Sodium Chloride (D5ns) 1,000 mls @ 80 mls/hr IVCONT .[id number] [facility] Last Admin: 04/08/21 04:50 Dose: 80 mls/hr Documented by: Lorazepam (Lorazepam 0.5 Mg Tablet) 0.5 mg PO DAILY PRN PRN Reason: Anxiety Last Admin: 04/07/21 14:10 Dose: 0.5 mg Documented by: Morphine Sulfate (Morphine Sulfate 2 Mg/Ml Cartridge) 2 mg IVPUSH Q4H PRN; Protocol PRN Reason: Pain, Severe (Pain Scale 7-10) Last Admin: 04/08/21 04:56 Dose: 2 mg Documented by: Ondansetron HCl (Ondansetron Hcl 4 Mg/2 Ml Vial) 4 mg IVPUSH Q8H PRN PRN Reason: nausea Oxycodone HCl (Oxycodone Hcl Immed Release 5 Mg Tablet) 5 mg PO Q4H PRN PRN Reason: Pain, Moderate (Pain Scale 4-6 Last Admin: 04/07/21 22:14 Dose: 5 mg Documented by: Pharmacy Consult (Consult Rx Perform Med Rec) 1 each MISCELLANE ONCE PRN PRN Reason: Consult order Sodium Chloride (0.9 % Sodium Chloride Flush 3 Ml Syringe) [facility] Last Admin: 04/08/21 07:34 Dose: Not Given Documented by: <Emmy Ruiz PA-C - Last Filed: 04/08/21 08:23> Time Spent With Patient Time: Total time spent is greater than 50% in coordination of care (as documented) at patient's floor/unit and/or counseling patient: <Emmy Ruiz PA-C - Last Filed: 04/08/21 08:23> Time with patient: 15 - 24 minutes <Emmy Ruiz PA-C - Last Filed: 04/08/21 08:23> Quality Stroke Does the patient have a stroke diagnosis?: No <Emmy Ruiz PA-C - Last Filed: 04/08/21 08:23> VTE Prior VTE?: No <Emmy Ruiz PA-C - Last Filed: 04/08/21 08:23> VTE Risk Level:: Medical - low <Emmy Ruiz PA-C - Last Filed: 04/08/21 08:23> VTE Device Contraindication: Treatment Not Indicated <Emmy Ruiz PA-C - Last Filed: 04/08/21 0 8:23> VTE Drug Contraindication: Treatment Not Indicated <Emmy Ruiz PA-C - Last Filed: 04/08/21 08:23>
[2021-04-08] MEDS: ondansetron HCL 4 MG/2 ML VIAL IVPUSH (09:34)
[2021-04-08 14:57] VITALS: BP 143/83; PULSE 55; RESP 18; TEMP 36; O2SAT 100
[2021-04-08] MEDS: Barium Sulfate Oral (Mocha) 450 ML ORAL.SUSP 900 ML PO (14:57)
[2021-04-08] MEDS: iohexoL 350 MG/ML 100 ML INFUS..BTL IV (14:58)
[2021-04-08] MEDS: 0.9 % Sodium Chloride Flush 3 ML SYRINGE IVFLUSH (17:09)
[2021-04-08] MEDS: oxyCODONE HCl Immed Release 5 MG TABLET PO (20:20)
--- NOTE | 2021-04-08 22:34 | PM.EVENT ---
Event Note Date of Service: 04/08/21 Event Note: seen on pm rounds denies pain comfortable wants to eat no n/v abd soft, nontender CT report - resolution of changes seen on previous CT, no obstruction although paraduodenal hernia a differential on previous CT now asymptomatic start diet pt wants to be discharged will see how she does tomorrow plan dw pt and
[2021-04-09] VITALS: BP 144/80; PULSE 60; RESP 18; TEMP 36; O2SAT 100
[2021-04-09 07:48] VITALS: BP 123/73; PULSE 57; RESP 16; TEMP 36.2; O2SAT 100
[2021-04-09] MEDS: Dextrose 5 % and 0.9 % NaCl 1,000 ML 80 ML IVCONT (08:38)
--- NOTE | 2021-04-09 09:39 | P.PNGS_ITS ---
Subjective Subjective Date of Service: 04/09/21 Interval history: Patient reports feeling improved today with no abdominal pain after eating breakfast. She denies nausea or vomiting, fever or chills. She feels ready for discharge to home. Physical Exam Vital Signs: Vital Signs: Last Vital Signs Temp 97.1 F 04/09/21 07:48 Pulse 57 04/09/21 07:48 Resp 16 04/09/21 07:48 BP 123/73 04/09/21 07:48 Pulse Ox 100 04/09/21 07:48 BMI result Body Mass Index 28.1 Const: General: cooperative, comfortable and no acute distress Nutritional Appearance: well nourished Orientation/consciousness: patient oriented x3 Limitations: no limitations Resp: Effort & Inspection: normal respiratory effort and no respiratory distress GI: Inspection: Yes normal to inspection Palpation (GI): Soft to palpation, nontender, no guarding and not rigid Skin: General skin exam: no rashes or lesions noted Neuro: General: patient oriented x3 Extrem: General: Yes no clubbing, cyanosis or edema Objective Data Active Medications Acetaminophen (Acetaminophen 325 Mg Tablet) 650 mg PO Q6H PRN PRN Reason: Pain, Mild (Pain Scale 1-3) Last Admin: 04/05/21 13:36 Dose: 650 mg Documented by: JUAN Dextrose/Sodium Chloride (D5ns) 1,000 mls @ 80 mls/hr IVCONT .[id number] [facility] Last Admin: 04/09/21 08:38 Dose: 80 mls/hr Documented by: BRITTANY Lorazepam (Lorazepam 0.5 Mg Tablet) 0.5 mg PO DAILY PRN PRN Reason: Anxiety Last Admin: 04/07/21 14:10 Dose: 0.5 mg Documented by: CAREY Morphine Sulfate (Morphine Sulfate 2 Mg/Ml Cartridge) 2 mg IVPUSH Q4H PRN; Protocol PRN Reason: Pain, Severe (Pain Scale 7-10) Last Admin: 04/08/21 04:56 Dose: 2 mg Documented by: DANDY Ondansetron HCl (Ondansetron Hcl 4 Mg/2 Ml Vial) 4 mg IVPUSH Q8H PRN PRN Reason: nausea Last Admin: 04/08/21 09:34 Dose: 4 mg Documented by: CAREY Oxycodone HCl (Oxycodone Hcl Immed Release 5 Mg Tablet) 5 mg PO Q4H PRN PRN Reason: Pain, Moderate (Pain Scale 4-6 Last Admin: 04/08/21 20:20 Dose: 5 mg Documented by: WIN Pharmacy Consult (Consult Rx Perform Med Rec) 1 each MISCELLANE ONCE PRN PRN Reason: Consult order Sodium Chloride (0.9 % Sodium Chloride Flush 3 Ml Syringe) 3 ml IVFLUSH QSHIFT [facility] Last Admin: 04/09/21 08:38 Dose: Not Given Documented by: BRITTANY Non-Admin Reason: IV Running Labs CBC & Chem 7: 04/08/21 05:15 04/08/21 05:15 Procedures Date of Service Date of Service: 04/09/21 Progress Note: A&P Assessment and plan (1) Enteritis: Status: Acute (2) Partial bowel obstruction: Status: Acute Assessment and Plan: Patient admitted with evidence of enteritis partial bowel obstruction which seemed to resolve very quickly. She is now asymptomatic with no significant abdominal pain she tolerated a regular diet without nausea or vomiting, or increased abdominal pain. Exam is benign this morning. Patient feels ready for discharge to home. She will follow up in approximately [address] Marc. I will keep her out of work until then. Was instructed to return to the emergency department should the pain return to the emergency department fever, chills, nausea, vomiting, or abdominal pain increases. Fall Risk Details Current Medications: Current Medications Acetaminophen (Acetaminophen 325 Mg Tablet) 650 mg PO Q6H PRN PRN Reason: Pain, Mild (Pain Scale 1-3) Last Admin: 04/05/21 13:36 Dose: 650 mg Documented by: Dextrose/Sodium Chloride (D5ns) 1,000 mls @ 80 mls/hr IVCONT .[id number] [facility] Last Admin: 04/09/21 08:38 Dose: 80 mls/hr Documented by: Lorazepam (Lorazepam 0.5 Mg Tablet) 0.5 mg PO DAILY PRN PRN Reason: Anxiety Last Admin: 04/07/21 14:10 Dose: 0.5 mg Documented by: Morphine Sulfate (Morphine Sulfate 2 Mg/Ml Cartridge) 2 mg IVPUSH Q4H PRN; Protocol PRN Reason: Pain, Severe (Pain Scale 7-10) Last Admin: 04/08/21 04:56 Dose: 2 mg Documented by: Ondansetron HCl (Ondansetron Hcl 4 Mg/2 Ml Vial) 4 mg IVPUSH Q8H PRN PRN Reason: nausea Last Admin: 04/08/21 09:34 Dose: 4 mg Documented by: Oxycodone HCl (Oxycodone Hcl Immed Release 5 Mg Tablet) 5 mg PO Q4H PRN PRN Reason: Pain, Moderate (Pain Scale 4-6 Last Admin: 04/08/21 20:20 Dose: 5 mg Documented by: Pharmacy Consult (Consult Rx Perform Med Rec) 1 each MISCELLANE ONCE PRN PRN Reason: Consult order Sodium Chloride (0.9 % Sodium Chloride Flush 3 Ml Syringe) 3 ml IVFLUSH [facility] Last Admin: 04/09/21 08:38 Dose: Not Given Documented by: Time Spent With Patient Time: Total time spent is greater than 50% in coordination of care (as documented) at patient's floor/unit and/or counseling patient: Time with patient: 15 - 24 minutes Quality Stroke Does the patient have a stroke diagnosis?: No VTE Prior VTE?: No VTE Risk Level:: Medical - low VTE Device Contraindication: Treatment Not Indicated VTE Drug Contraindication: Treatment Not Indicated
--- NOTE | 2021-04-09 09:58 | MHC.CM.PN ---
NURSE CASE MANAGEMENT ELECTRONIC MEDICAL RECORD REVIEWED , PATIENT WILL BE DISCHARGED HOME TODAY DISCHARGED HOME NO SERVICES ' YTRANSPORT - FAMILY PCP DR TOM PATIENT TO CALL FOR [facility] DISCHARGE [facility]POINTMENT
--- NOTE | 2021-04-13 12:26 | P.DS_ITS ---
DS: Providers Provider Date of Service: 04/09/21 Date of admission: 04/04/21 18:41 Primary care physician: Tobin Gallegos MD Attending physician on admission: Ramon Marc DS: Diagnosis Discharge Diagnosis (1) Enteritis: Status: Resolved (2) Partial bowel obstruction: Status: Resolved DS: Summary Hospital Course Hospital Course: BRIEF HPI: Nica Marc is a 35 year old female with PMH of anxiety, asthma who presented to the ED with complaints of LUQ abd pain. She reports the pain actually started on 04/03. She was having [employer] dinner and shortly after developed the LUQ pain with nausea and multiple episodes of vomiting. The pain waxes and wanes in severity but is sharp in nature. She presented to the ED that day but was not seen for several hours and left. The pain persisted at home and she decided to come to the ED again yesterday. She reports last passing flatus yesterday. She has not vomited since yesterday. She denies fever, chills, diarrhea, abdominal distention. She had a tubal ligation but denies any other abdominal surgeries. She denies sick contacts with similar symptoms, prior episodes of similar pain. Work up in the ED included a CT scan which showed mildly distended small bowel in the LUQ with a matted appearance with distal loops of bowel are decompressed. HOSPITAL COURSE: The patient was admitted to the surgical service for further treatment of her enteritis, PSBO. She was non toxic appearing with a benign abd exam. Supportive treatment was continued with bowel rest, IVF, pain control. She had an uncomplicated hospital course and fairly quick resolution of her enteritis/PSBO. Her pain and nausea gradually improved. She began passing flatus and moving her bowels. Her diet was advanced to clear liquids and then solid diet. She however redeveloped significant nausea following solid food. A f/u CT scan was obtained which showed resolution of the dilated SB loops. She was advanced back to a solid diet which was tolerating without any further abdominal pain or nausea. She felt ready for discharge. She was discharged to home on 04/09/21 in stable condition. She is to f/u with Dr. Marc in office in 1 week. She was incidentally found to have a 1.2 cm homogeneous left adrenal nodule on imaging. She is to follow up with her PCP regarding this and for f/u CT scan in 1 year. Status at Discharge Functional status at discharge: independent ambulation Overall status at discharge: patient is back to baseline Time Spent with Patient Time attestation: Total time spent providing and/or coordinating discharge services: Discharge coordination time: Less than 30 minutes Quality: Stroke Does the patient have a stroke diagnosis?: No Physical Exam Vital Signs: Vital Signs: Last Vital Signs Temp 97.1 F 04/09/21 07:48 Pulse 57 04/09/21 07:48 Resp 16 04/09/21 07:48 BP 123/73 04/09/21 07:48 Pulse Ox 100 04/09/21 07:48 BMI result Body Mass Index 28.1 Const: General: comfortable and no acute distress Orientation/consciousness: patient oriented x3 GI: Inspection: No distended Palpation (GI): Soft to palpation, nontender and no guarding Skin: General skin exam: no rashes or lesions noted Neuro: General: patient oriented x3 Extrem: General: Yes no clubbing, cyanosis or edema Discharge Plan Discharge Patient Disposition: Home, Self-Care Discharge Diagnosis: enteritis Referrals: Name,MD Tobin [Primary Care Provider] - 2 days Discharge Medications: New oxycodone-acetaminophen [Endocet] 5-325 mg tablet 1 tab PO Q6H PRN (Reason: pain (scale score 7-10)) Qty: 10 RF: 0 Continued lorazepam 0.5 mg tablet 1 tab PO DAILY PRN (Reason: Anxiety) RF: 0 Discharge Orders: Discharge Order (Routine); Ordered 04/09/21 Ordered By: Stalin Jean Diet: advance to usual diet Activity on Discharge: As tolerated Stand Alone Forms: Patient Portal Discharge page, Work/School Release Activity Restrictions/Additional Instructions: Follow-up with your primary care provider next week. A nodule was noted to the left adrenal gland on CT, please follow up with your PCP to discuss this finding. Call your PCP or return to the emergency department with new or worsening symptoms. In case of emergency call 911 Care Plan Goals: Return to activities. Resolution of pain. Health Concerns: hx of anxiety, asthma; enteritis Nodule on left adrenal gland Plan of Treatment: F/u with PCP Assessment: Improved Discharge Date/Time: 04/09/21 10:59
== END 2021-04-09 10:59 | disposition home or self-care (01) | DRG 249 ==
LOC: HO.ED 18:39 → HO.EDOVER 18:54 → HO.S3 04-05 16:58
PROVIDERS: Physician Assistant; Admitting Provider Surgery; Emergency Provider Emergency Medicine; PCP Internal Medicine Geriatric Medicine; Visit Provider Surgery
DX: K52.9 Noninfective gastroenteritis and colitis, unspecified (principal); K56.600 Partial intestinal obstruction, unspecified as to cause; F41.9 Anxiety disorder, unspecified; G43.909 Migraine, unspecified, not intractable, without status migrainosus; E27.9 Disorder of adrenal gland, unspecified; F17.210 Nicotine dependence, cigarettes, uncomplicated; Z20.822 Contact with and (suspected) exposure to COVID-19; Z71.6 Tobacco abuse counseling; Z79.899 Other long term (current) drug therapy
CPT/HCPCS: 36415; 74177; 80048; 80053; 82150; 83690; 83735; 84702; 85025; 85027; 87635; 96361; 96374; 96375; 96376; 99285; 99291; J1885; J2270; J2405; Q9967

== ENCOUNTER 2021-12-16 12:55 | Outpatient (REF) | payer MEDICAID, SELFPAY ==
--- NOTE | ~2021-12-16 | XR_ITS ---
EXAMINATION: XR HAND, RIGHT XR HAND, LEFT CLINICAL INFORMATION: Chronic bilateral hand pain. COMPARISON: Right hand radiographs dated 11/10/2017. TECHNIQUE: PA, oblique, and lateral views of the right and left hand. FINDINGS: Right hand: No fracture or dislocation. Normal carpal alignment. No significant joint space narrowing or marginal osteophytes. No osseous erosion. No periarticular osteopenia. No abnormal soft tissue calcification. Left hand: No fracture or dislocation. Normal carpal alignment. No significant joint space narrowing or marginal osteophytes. No osseous erosion. No periarticular osteopenia. No abnormal soft tissue calcification. XR/XR hand LT min 3V IMPRESSION: Right hand: Unremarkable examination. Left hand: Unremarkable examination.
--- NOTE | ~2021-12-16 | XR_ITS ---
EXAMINATION: XR HAND, RIGHT XR HAND, LEFT CLINICAL INFORMATION: Chronic bilateral hand pain. COMPARISON: Right hand radiographs dated 11/10/2017. TECHNIQUE: PA, oblique, and lateral views of the right and left hand. FINDINGS: Right hand: No fracture or dislocation. Normal carpal alignment. No significant joint space narrowing or marginal osteophytes. No osseous erosion. No periarticular osteopenia. No abnormal soft tissue calcification. Left hand: No fracture or dislocation. Normal carpal alignment. No significant joint space narrowing or marginal osteophytes. No osseous erosion. No periarticular osteopenia. No abnormal soft tissue calcification. XR/XR hand RT min 3V IMPRESSION: Right hand: Unremarkable examination. Left hand: Unremarkable examination.
== END 2021-12-16 12:56 | disposition home or self-care (01) ==
LOC: HO.XRAY 12:55
PROVIDERS: PCP Internal Medicine Geriatric Medicine; Visit Provider Internal Medicine Geriatric Medicine
DX: M79.641 Pain in right hand (principal); M79.642 Pain in left hand
CPT/HCPCS: 73130

== ENCOUNTER 2022-02-18 09:22 | Outpatient (REF) | payer MEDICAID, SELFPAY ==
[2022-02-18 09:50] LABS: MANUAL DIFF FLAG NO
[2022-02-18 09:52] LABS: Basophils Absolute Auto 0.1 X10*3/uL (0.0-0.2); Basophils Percent Auto 0.9 % (0-2); Eosinophils Absolute Auto 0.2 X10*3/uL (0.0-0.4); Eosinophils Percent Auto 3.5 % (0-4); Hematocrit 42.5 % (37.0-47.0); Hemoglobin 14.2 g/dl (12.0-16.0); Imm Gran Abs Auto 0.02 X10*3/uL (0.00-0.03); Imm Gran Pct Auto 0.3 % (0.0-0.4); Lymphocytes Absolute Auto 2.5 X10*3/uL (1.2-4.9); Lymphocytes Percent Auto 37.5 % (20-40); Mean Corpuscular HGB Conc 33.4 g/dl (31.0-35.0); Mean Corpuscular Hemoglobin 30.4 pg (27.0-33.0); Mean Platelet Volume 9.9 fL (9.4-12.3); Monocytes Absolute Auto 0.4 X10*3/uL (0.1-1.2); Monocytes Percent Auto 6.4 % (2-11); Neutrophils Absolute Auto 3.4 x10*3/uL (2.0-8.3); Neutrophils Percent Auto 51.4 % (45-73); Platelet Count 218 X10*3/uL (160-400); Red Blood Count 4.67 X10*6/uL (4.20-5.50); Red Cell Distribution Width 12.2 % (11.0-16.0); White Blood Count 6.6 X10*3/uL (4.8-10.8)
[2022-02-18 10:23] LABS: Alanine Aminotransferase 18 U/L (0-31); Albumin Level 4.7 g/dL (3.5-5.0); Alkaline Phosphatase 54 U/L (39-117); Anion Gap 16 (12-20); Aspartate Amino Transferase 18 U/L (5-31); Bilirubin Total 0.6 mg/dL (0.0-1.0); Blood Urea Nitrogen 13 mg/dL (9-16); C Reactive Protein 0.06 mg/dL (< or = 0.50); Calcium 9.4 mg/dL (8.4-10.2); Carbon Dioxide 24 mmol/L (22-29); Chloride 104 mmol/L (96-108); Estimated Glomerular Filt Rate > 60; Glucose Random 84 mg/dL (60-115); Potassium 4.8 mmol/L (3.3-5.1); Sodium 139 mmol/L (135-145); Total Protein 7.5 g/dL (6.5-8.0)
[2022-02-18 10:44] LABS: Ferritin 34 ng/mL (10-122); TSH reflex Free T4 2.82 uIU/mL (0.32-4.0)
[2022-02-18 10:47] LABS: Erythrocyte Sedimentation Rate 8 MM/HR (0-20)
[2022-02-18 10:55] LABS: Folate 7.8 ng/mL (> or = 4.0); Vitamin B12 155 pg/mL (200-900)
[2022-02-18 11:27] LABS: Cortisol Random 12.8 ug/dL
[2022-02-22 17:55] LABS: Zinc 84 mcg/dL (60-130)
[2022-02-23 14:31] LABS: Vitamin B6 4.8 ng/mL (2.1-21.7)
[2022-02-24 02:22] LABS: Vitamin C 0.1 mg/dL (0.3-2.7)
[2022-02-24 11:26] LABS: Nicotinamide 39 ng/mL; Vit B3 - Nicotinic Acid <20 ng/mL; Vitamin B5 (Pantothenic Acid) <40 ng/mL (<275)
[2022-02-24 15:26] LABS: Vitamin A 54 mcg/dL (38-98)
== END 2022-02-18 09:23 | disposition home or self-care (01) ==
LOC: HO.LAB 09:22
PROVIDERS: PCP Internal Medicine Geriatric Medicine; Visit Provider Internal Medicine Gastroenterology
DX: R10.32 Left lower quadrant pain (principal); K56.609 Unspecified intestinal obstruction, unspecified as to partial versus complete obstruction; R19.7 Diarrhea, unspecified; K75.81 Nonalcoholic steatohepatitis (NASH); E27.8 Other specified disorders of adrenal gland
CPT/HCPCS: 36415; 80053; 82180; 82533; 82607; 82728; 82746; 83520; 84207; 84443; 84590; 84591; 84630; 85025; 85652; 86140

== ENCOUNTER 2022-03-14 14:49 | Outpatient (REF) | payer MEDICAID, SELFPAY ==
--- NOTE | ~2022-03-14 | CT_ITS ---
EXAMINATION: CT ENTEROGRAPHY ABDOMEN AND PELVIS WITH CONTRAST CLINICAL INFORMATION: Periumbilical pain. COMPARISON: 04/08/2021 TECHNIQUE: Study performed with oral VoLumen (1350 mL) and 480 mL of water to distend the abdomen. The patient was injected with 85 mL Omnipaque 350 intravenous contrast which was administered without adverse effect. Coronal and sagittal reformatted images were obtained at the technologist's workstation. This CT examination was performed using dose optimization techniques as appropriate, variously including the following: *Automated exposure control *Adjustment of mA and/or kV according to patient size (this includes techniques or standardized protocols for targeted exams where dose is matched to indication/reason for exam; i.e. extremities or head) *Use of iterative reconstruction technique DLP: 499 mGy-cm FINDINGS: GASTROINTESTINAL FINDINGS: Stomach: Well-distended and normal in appearance. Small intestine: Satisfactorily distended and normal in appearance. Large intestine: Partially distended. Scattered diverticulosis. No diverticulitis. No wall thickening. No significant abnormal colonic stool burden.. No perirectal changes demonstrated. The appendix is normal. Additional findings: No abnormal enhancement of the vasa recta or significant mesenteric or retroperitoneal lymphadenopathy is seen. No abdominal abscess or fistulous tract demonstrated. ABDOMINAL AND PELVIC CT FINDINGS: Liver, gallbladder, biliary tract: Normal. Pancreas: Normal. Spleen: Normal. Adrenal glands and kidneys: Normal. Ureters and bladder: Normal. Pelvic viscera: Anteverted uterus. No adnexal mass. Dominant right ovarian follicle noted with peripheral enhancement. This measures 1.4 cm. Lymphovascular structures: No lymphadenopathy. Normal caliber aorta. Duplicated retroaortic left renal vein. Bones: No acute or suspicious osseous abnormality. Lung bases: Lung bases are clear. CT/CT enterography IMPRESSION: No acute findings of the abdomen or pelvis. Normal appearance of the small and large bowel. Normal appendix.
[2022-03-14] MEDS: iohexoL 350 MG/ML 100 ML INFUS..BTL 85 ML IV (16:43)
== END 2022-03-14 14:50 | disposition home or self-care (01) ==
LOC: HO.US 14:49
PROVIDERS: Visit Provider Internal Medicine Gastroenterology
DX: R10.33 Periumbilical pain (principal)
CPT/HCPCS: 74177; Q9967

== ENCOUNTER 2022-11-01 08:49 | Emergency (ER) | payer MEDICAID, SELFPAY ==
[2022-11-01 08:56] VITALS: BP 128/78; PULSE 66; RESP 18; TEMP 36.6; O2SAT 98; BMI 29.6
--- OUTSIDE RECORDS SUMMARY | 2022-11-01 09:25 | XMS_ITS | Continuity of Care Document ---
Author Name Unknown Organization [facility] Vaishali starkeyGraphite Systemsjean carlos [facility] Address [address] [place] [address], [address] [place] [address]- Care Team Providers Care Sales And Marketing Assistant Name Role Phone Name Tobin ROBLES Primary Care Physician [facility] [id number] Date(s): 12/27/21 - 01/26/22 [facility] RuddGraphite Systemss [facility] [address], [address] [place], [place] [address] Attending Physician: Vinay Gandara Admitting Physician: Vinay Gandara Referring Physician: AdmtrVinay Allergies, Adverse Reactions, Alerts No Known Allergies Medications acetaminophen-butalbital 300 mg-50 mg oral tablet 1 tablet, By Mouth, Every 4 hours, 0 Refills, Maintenance, 04/07/14 10:52:35 Start Date: 04/07/14 Status: Ordered Dulcolax 5 mg oral enteric coated tablet 1 tablet = 5 mg, By Mouth, Daily, PRN as needed for constipation, # 20 tablet, 0 Refills, Maintenance, 12/27/21 9:58:00 EDT, CR Tablet, Partial fill upon patient request if the prescription is for a schedule II opioid drug. Start Date: 12/27/21 Status: Ordered Flovent HFA Inhalation, 2 times a day, 0 Refills, Maintenance, 12/27/21 9:59:00 EDT, Partial fill upon patient request if the prescription is for a schedule II opioid drug. Start Date: 12/27/21 Status: Ordered ibuprofen 800 mg oral tablet 1 tablet = 800 mg, By Mouth, 3 times a day, # 270 tablet, 0 Refills, Maintenance, 04/07/14 10:52:05, Tablet Start Date: 04/07/14 Status: Ordered lactulose 10 gm oral powder for reconstitution 1 each = 10 Gm, By Mouth, Daily, 0 Refills, Maintenance, 12/27/21 9:59:00 EDT, Partial fill upon patient request if the prescription is for a schedule II opioid drug. Start Date: 12/27/21 Status: Ordered Linzess By Mouth, Daily, 0 Refills, Maintenance, 12/27/21 9:58:00 EDT, Partial fill upon patient request ifthe prescription is for a schedule II opioid drug. Start Date: 12/27/21 Status: Ordered loratadine 10 mg oral capsule 1 capsule = 10 mg, By Mouth, Daily, 0 Refills, Maintenance, 12/27/21 9:58:00 EDT, Partial fill uponpatient request if the prescription is for a schedule II opioid drug. Start Date: 12/27/21 Status: Ordered LORazepam 0.5 mg oral tablet 1 tablet = 0.5 mg, By Mouth, Every 8 hours, 0 Refills, Maintenance, 12/27/21 10:00:00 EDT, Partial fill upon patient request if the prescription is for a schedule II opioid drug. Start Date: 12/27/21 Status: Ordered metoclopramide 5 mg oral tablet 1 tablet = 5 mg, By Mouth, 3 times a day before meals and bedtime, 0 Refills, Maintenance, 04/07/1410:51:44 Start Date: 04/07/14 Status: Ordered nortriptyline 25 mg oral capsule 1 capsule = 25 mg, By Mouth, Daily at bedtime, # 30 capsule, 3 Refills, Maintenance, 04/07/14 11:50:07, Capsule, 1 capsule By Mouth Daily at bedtime,x30 days Start Date: 04/07/14 Stop Date: 08/05/14 Status: Ordered Percocet-10/325 1 tablet, By Mouth, Every 6 hours, 0 Refills, Maintenance, 04/07/14 10:51:12 Start Date: 04/07/14 Status: Ordered ProAir HFA Inhalation, Every 6 hours, 0 Refills, Maintenance, 12/27/21 9:59:00 EDT, Partial fill upon patient request if the prescription is for a schedule II opioid drug. Start Date: 12/27/21 Status: Ordered sertraline 100 mg oral tablet 1 tablet = 100 mg, By Mouth, Daily, 0 Refills, Maintenance, 12/27/21 9:58:00 EDT, Partial fill uponpatient request if the prescription is for a schedule II opioid drug. Start Date: 12/27/21 Status: Ordered Singulair 10 mg oral tablet 10 mg, 1, tablet, By Mouth, Daily, Refills 0, Maintenance, 12/27/21 9:59:00 EDT, Partial fill upon patient request if the prescription is for a schedule II opioid drug. Start Date: 12/27/21 Status: Ordered sumatriptan 50 mg oral tablet 1 tablet = 50 mg, By Mouth, Once, PRN for migraine headache, # 9 tablet, 0 Refills, Maintenance, 04/07/14 10:55:01, Tablet Start Date: 04/07/14 Status: Ordered Topiramate = 50 mg, By Mouth, 2 times a day, 0 Refills, Maintenance, 04/07/14 10:52:58 Start Date: 04/07/14 Status: Ordered traZODone 50 mg oral tablet 50 mg, 1, tablet, By Mouth, Refills 0, Maintenance, 12/27/21 10:00:00 EDT, Partial fill upon patient request if the prescription is for a schedule II opioid drug. Start Date: 12/27/21 Status: Ordered Zofran ODT 4 mg oral tablet, disintegrating 1 tablet = 4 mg, By Mouth, Every 8 hours, PRN Nausea & Vomiting, # 10 tablet, 0 Refills, Maintenance, 10/01/14 23:58:59, Tablet Start Date: 10/01/14 Status: Ordered Problem List Condition Confirmation Course Effective Dates Status H ealth Status Informant Left ankle pain Confirmed Active Anxiety Confirmed Active Asthma Confirmed Active Chronic low back pain Confirmed Active COPD (chronic obstructive pulmonary disease) Confirmed Active Depression Confirmed Active Dizziness Confirmed Active Migraine Confirmed Active Urinary incontinence, mixed Confirmed Active Bilateral hand numbness Confirmed Active Panic attacks Confirmed Active Moderate episode of recurrent major depressive disorder Confirmed Active Smoking Confirmed Active Submandibular sialolithiasis Confirmed Active Syncope and collapse Confirmed Active Tobacco use Confirmed Active Urticaria due to cold Confirmed Active Social History Social History Type Response Smoking Status Current every day sm oker; Tobacco user in household: No entered on: 04/07/14 Sex Patient Care team information Personnel Name: Tobin Gallegos MD Address: Address: [address] [place] [address]
--- NOTE | 2022-11-01 09:27 | ED.SKABFB ---
HPI - Skin/Abscess/Foreign Bdy General Chief complaint: Skin/Abscess/Foreign Body Stated complaint: Callous R Big Toe Time Seen by Provider: 11/01/22 09:08 Source: patient and RN notes reviewed Mode of arrival: ambulatory Limitations: no limitations History of Present Illness HPI narrative: This is a 37-year-old female presenting to the emergency department for evaluation corn on right great toe x6 months. Patient states that she has been using [id number] corn removal treatments, which has only been causing her worsening pain. She states that her pain worsened about 1 month ago. Pain worsens with palpation and with weight-bearing. She has a primary care doctor who she can follow up with, she denies seeing podiatry for this issue. Denies any fevers or chills. She is otherwise feeling well. No other complaints or concerns at this time. MD complaint: abscess/boil Onset (ago): month(s) Severity: moderate Quality: aching Pain Consistency: constant Relieving factors: none Exacerbating factors: none Context: none Associated symptoms: denies other symptoms Treatments prior to arrival: OTC topical medication Related Data Home Medications Medication Instructions Recorded Confirmed lorazepam 0.5 mg tablet 1 tab PO DAILY PRN Anxiety 04/05/21 04/05/21 Previous Rx's Medication Instructions Recorded oxycodone-acetaminophen 5 mg-325 1 tab PO Q6H PRN pain (scale score 04/09/21 mg tablet (Endocet) 7-10) #10 tabs linaclotide 145 mcg capsule 145 mcg PO DAILY #30 caps 12/31/21 cyanocobalamin (vitamin B-12) 1,000 mcg PO DAILY #30 tabs 06/12/22 1,000 mcg tablet Allergies Allergy/AdvReac Type Severity Reaction Status Date / Time No Known Allergies Allergy Unknown U Verified 11/01/22 08:56 Review of Systems Review of Systems: Constitutional: No Weight loss, No Fever, No Chills ENT/Mouth: No Ear Pain, No Nasal Congestion, No Sinus Pain, No Hoarseness, No sore throat, No Rhinorrhea, No Swallowing Difficulty Cardiovascular: No Chest Pain, No SOB Respiratory: No Cough, No Sputum, No Wheezing Gastrointestinal: No Nausea, No Vomiting, No Diarrhea, No Constipation, No Abdominal pain Genitourinary: No Dysuria, No Urinary Frequency, No Hematuria, No Urinary Incontinence/retention, No Urgency, No Flank Pain Musculoskeletal: No joint pain, No Myalgias, No Joint Swelling Skin: +Skin Lesions, No rash Neuro: No Weakness, No Numbness, No Paresthesias Yes all other systems are reviewed and are negative Constitutional: Constitutional: Reports as per [facility] Past Medical History Medical History (Updated 11/01/22 @ 09:30 by TEO Rodrigez) Anxiety Asthma Migraine Surgical History (Updated 04/05/21 @ 09:07 by Emmy Ruiz PA-C) History of ankle surgery Tubal ligation status Social History Social History Housing: House Do you presently have visiting nurse or other home services: No Patient Tobacco Use Status: Current everyday Tobacco user Tobacco use type: Cigarette Cigarette Packs Per Day: 0 Cigarettes Per Day: 4 Years Smoked: 16 Second Hand Smoke Exposure: Yes Advance Directives: No service: No Current occupational status: employed Physical Exam Vital Signs: Vital Signs: Last Vital Signs Temp 97.9 F 11/01/22 08:56 Pulse 66 11/01/22 08:56 Resp 18 11/01/22 08:56 BP 128/78 11/01/22 08:56 Pulse Ox 98 11/01/22 08:56 O2 Del Method Room Air 11/01/22 08:56 BMI result Body Mass Index 29.6 Const: General: cooperative, comfortable and no acute distress Orientation/consciousness: patient oriented x3 Limitations: no limitations HEENT: Head: Yes normal to inspection, Yes normocephalic and Yes atraumatic Ears: hearing grossly normal bilaterally General nose exam: Normal external nose present Face and sinus: Yes normal facial exam Mouth: Normal oral and palatal mucosa present, oropharynx normal and moist mucous membranes Throat: Yes posterior oropharynx normal Eyes: General: appearance normal, both eyes and all related structures Eyelids: Yes eyelids normal Conjunctivae: conjunctivae normal Sclerae: sclerae normal Pupils: Equal, round and reactive pupils present EOM: EOMs intact bilaterally Neck: Neck: Yes normal visual inspection, Yes full ROM and Yes no lymphadenopathy Lymphatic: no lymphadenopathy noted Chest: Chest palpation & inspection: normal inspection of the chest Resp: Effort & Inspection: normal respiratory effort and able to speak in complete sentences Auscultation: clear to auscultation bilaterally, no crackles, no rales, no rhonchi and no wheezes Cardio: Rate: regular rate Rhythm: regular rhythm Heart sounds: S1 normal heart sound present and S2 normal heart sound present GI: Inspection: Yes normal to inspection Skin: Other: Right great toe, plantar aspect, there is a 2mm hardened corn, no surrounding erythema, edema, or warmth. TTP, Full ROM to the foot and toe. Neuro: General: patient oriented x3 and moves all extremities Cranial nerves: Yes Equal, round and reactive pupils present Extrem: General: Yes normal to inspection Right upper extremity: normal to inspection Left upper extremity: normal to inspection Right lower extremity: normal to inspection Left lower extremity: normal to inspection Medical Decision Making Medical Decision Making MDM Narrative: This is a 37-year-old female presenting to the emergency department for evaluation of corn on foot x5 months. On examination, patient has no evidence of underlying cellulitis or skin infection. Patient needs to be seen by Podiatry for further workup and management of her symptoms. Discussed case with attending physician, Dr. Hoffmann who agree that she needs to be seen by Podiatry in no ER intervention should be performed today. Discussed this with patient who understands and agrees with this plan. Vital signs stable, patient is afebrile. Patient stable for discharge Differential Diagnosis Differential Diagnoses: The differential diagnosis associated with the presentation includes Cellulitis, gout, callus, corn Discharge Plan Discharge Clinical Impression: [place] of toe Patient Disposition: Home, Self-Care Additional Instructions: You have a corn on your toe, which needs to be seen by Podiatry for further treatment and evaluation. Call today to make an appointment. It does not appear to be infected at this time, you do not need antibiotics. Please keep a close eye on this area, do not pick or tried to cut off corn until you are seen by Podiatry. If any new or worsening symptoms occur please return for re-evaluation. Prescriptions: No Action cyanocobalamin (vitamin B-12) 1,000 mcg tablet 1,000 mcg PO DAILY Qty: 30 2RF lorazepam 0.5 mg tablet 1 tab PO DAILY PRN (Reason: Anxiety) oxycodone-acetaminophen [Endocet] 5-325 mg tablet 1 tab PO Q6H PRN (Reason: pain (scale score 7-10)) Qty: 10 0RF linaclotide 145 mcg capsule 145 mcg PO DAILY Qty: 30 1RF Referrals: Criselda Bowman DPM [Physician] - Stalin Montenegro [Physician] -
--- NOTE | 2022-11-01 10:24 | PC.NURSE ---
PT WAS SEEN BY PROVIDER/EVALUATED PROVIDED DISCHARGE PAPERWORK BY PROVIDER. DC INSTRUCTIONS REVIEWED WITH PATIENT BY PROVIDER
== END 2022-11-01 10:25 | disposition home or self-care (01) ==
PROVIDERS: Emergency Provider Emergency Medicine; PCP Internal Medicine Geriatric Medicine
DX: L84 Corns and callosities (principal)
CPT/HCPCS: 99282

== ENCOUNTER 2023-06-15 07:58 | Outpatient (REF) | payer MEDICAID, SELFPAY ==
[2023-06-15 09:37] LABS: Alanine Aminotransferase 30 U/L (0-31); Albumin Level 4.3 g/dL (3.5-5.0); Alkaline Phosphatase 60 U/L (39-117); Anion Gap 11 (12-20); Aspartate Amino Transferase 22 U/L (5-31); Bilirubin Total 0.5 mg/dL (0.0-1.0); Blood Urea Nitrogen 10 mg/dL (9-16); Calcium 9.3 mg/dL (8.4-10.2); Carbon Dioxide 28 mmol/L (22-29); Chloride 105 mmol/L (96-108); Cholesterol 193 mg/dL (<200); Estimated Glomerular Filt Rate > 60; Glucose Random 87 mg/dL (60-115); HDL Cholesterol 46 mg/dL (>40); LDL Cholesterol Calculated 134 mg/dL (<100); Potassium 4.2 mmol/L (3.3-5.1); Sodium 140 mmol/L (135-145); Total Protein 7.1 g/dL (6.5-8.0); Triglycerides 69 mg/dL (<150)
== END 2023-06-15 07:59 | disposition home or self-care (01) ==
LOC: HO.LAB 07:58
PROVIDERS: PCP Internal Medicine Geriatric Medicine; Visit Provider Internal Medicine Geriatric Medicine
DX: Z13.1 Encounter for screening for diabetes mellitus (principal); Z13.220 Encounter for screening for lipoid disorders
CPT/HCPCS: 36415; 80053; 80061

== ENCOUNTER 2023-12-26 08:52 | Outpatient (REF) | payer MEDICAID, SELFPAY ==
--- NOTE | ~2023-12-26 | MM_ITS ---
EXAMINATION: MM SCREENING DIGITAL BREAST TOMOSYNTHESIS, BILATERAL CLINICAL INFORMATION: Screening. Asymptomatic. COMPARISON: Mammography: Comparison is made with available priors TECHNIQUE: Digital breast mammography with tomosynthesis is performed in both the craniocaudal and mediolateral oblique views along with computer-aided detection (CAD). FINDINGS: There are scattered areas of fibroglandular density (ACR BI-RADS breast composition Category b). Left: Asymmetry superior breast middle depth on the MLO view. Asymmetry lateral breast middle depth on CC view. No suspicious calcifications or other abnormal findings. Right: Asymmetry superior breast posterior depth on MLO view with questioned distortion. No suspicious calcifications or other abnormal findings. MM/MM tomosynthesis screening BI IMPRESSION: Additional imaging is recommended ASSESSMENT: BI-RADS BI-RADS 0 - Incomplete: Needs additional Imaging. RECOMMENDATION: 1. Additional views of the bilateral breasts 2. Targeted ultrasound if warranted after review of the additional views. 3. Radiology department staff will contact the patient for additional imaging. Additional Imaging required This examination should not preclude the clinical evaluation of a suspicious palpable abnormality. This patient's information was entered into a reminder system with a target due date for their next mammogram. Electronically signed by: Sintia Roe DO 01/08/2024 04:02 PM EDT
== END 2023-12-26 08:53 | disposition home or self-care (01) ==
LOC: HO.MAMMO 08:52
PROVIDERS: PCP Internal Medicine Geriatric Medicine; Visit Provider Internal Medicine Geriatric Medicine
DX: Z12.31 Encounter for screening mammogram for malignant neoplasm of breast (principal)
CPT/HCPCS: 77063; 77067

== ENCOUNTER → 2023-12-26 08:56 | Outpatient (BNV) | payer MEDICAID, SELFPAY | PROVIDERS: PCP Internal Medicine Geriatric Medicine; Visit Provider Internal Medicine | DX: Z12.31 Encounter for screening mammogram for malignant neoplasm of breast (principal) | CPT/HCPCS: 77063; 77067 ==

== ENCOUNTER 2024-01-27 07:13 | Emergency (ER) | payer MEDICAID, SELFPAY ==
--- NOTE | ~2024-01-27 | XR_ITS ---
EXAMINATION: XR CHEST CLINICAL INFORMATION: Cough COMPARISON: Right rib radiograph from 09/07/2017 TECHNIQUE: 2 views of the chest were obtained. FINDINGS: No focal consolidation. No pneumothorax. Trachea is midline. Cardiac mediastinal silhouette is not enlarged. No pleural effusion. Osseous structures are intact. Soft tissues are unremarkable. XR/XR chest 2V IMPRESSION: No acute cardiopulmonary process. Electronically signed by: Giselle Baker MD 01/27/2024 08:36 AM EDT
[2024-01-27 07:24] VITALS: BP 151/76; PULSE 87; RESP 20; TEMP 36.9; O2SAT 100; BMI 30.3
[2024-01-27 07:56] LABS: IDNOW Serial# 08D9AD1C; Strep A Nucleic Acid Negative (Negative)
--- NOTE | 2024-01-27 07:56 | ED_ITS ---
HPI - URI/Sore Throat General Chief Complaint: Upper Respiratory Symptoms Stated Complaint: coughing Time Seen by Provider: 01/27/24 07:48 Source: patient Mode of arrival: ambulatory Limitations: no limitations History of Present Illness ED Provider: Familia Pratt PA-C HPI Narrative: 38 yo female with history of SBO, history of asthma who presents to the ER for evaluation of 1 week of dry coughing fits along with rib pain bilaterally. She states she also has a sore throat and a hoarse voice. She has been using albuterol so she does not think it is working very well. She reports body aches, headaches, general malaise. No known sick contacts. No chest pain at rest. No nausea, vomiting, abdominal pain. MD elicited complaint: cough and sore throat Pertinent past history: asthma Onset (ago): week(s) (1) Consistency: progressively worsening Severity: moderate Able to tolerate fluids by mouth: Yes Exacerbating factors: other (Coughing) Associated symptoms: myalgias, headache, nasal congestion, sore throat, cough and shortness of breath Treatments prior to arrival: none Related Data Home Medications ?Medication ?Instructions ?Recorded ?Confirmed lorazepam 0.5 mg tablet 1 tab PO DAILY PRN Anxiety 04/05/21 04/05/21 Previous Rx's ?Medication ?Instructions ?Recorded oxycodone-acetaminophen 5 mg-325 1 tab PO Q6H PRN pain (scale score 04/09/21 mg tablet (Endocet) 7-10) #10 tabs linaclotide 145 mcg capsule 145 mcg PO DAILY #30 caps 12/31/21 cyanocobalamin (vitamin B-12) 1,000 mcg PO DAILY #30 tabs 06/12/22 1,000 mcg tablet albuterol sulfate 90 mcg/actuation 2 puff inhalation Q6H PRN 01/27/24 aerosol inhaler shortness of breath or wheezing #8.5 grams benzonatate 100 mg capsule 100 mg PO TID PRN cough #30 caps 01/27/24 fluticasone 250 mcg-salmeterol 50 1 inh inhalation BID #60 ea 01/27/24 mcg/dose blistr powdr for inhalation (Advair Diskus) prednisone 20 mg tablet 40 mg (2 x 20 mg) PO DAILY #8 tabs 01/27/24 Allergies Allergy/AdvReac Type Severity Reaction Status Date / Time No Known Allergies Allergy Unknown U Verified 01/27/24 07:28 Review of Systems Review of Systems: Yes all other systems are reviewed and are negative [facility] Past Medical History Medical History (Updated 01/27/24 @ 08:58 by TEO Alvarez) Asthma Anxiety Migraine Surgical History (Updated 04/05/21 @ 09:07 by Emmy Ruiz PA-C) History of ankle surgery Tubal ligation status Social History Social History Housing: House Do you presently have visiting nurse or other home services: No Patient Tobacco Use Status: Current everyday Tobacco user Tobacco use type: Cigarette Cigarette Packs Per Day: 0 Cigarettes Per Day: 4 Years Smoked: 16 Second Hand Smoke Exposure: Yes Advance Directives: No Advance Directives Information Provided: No Do you have a plan to hurt others: No Plan service: No Current occupational status: employed Physical Exam Vital Signs: Vital Signs: Last Vital Signs Temp 98.4 F 01/27/24 07:24 Pulse 87 01/27/24 07:24 Resp 20 01/27/24 07:24 BP 151/76 H 01/27/24 07:24 Pulse Ox 100 01/27/24 07:24 O2 Del Method Room Air 01/27/24 07:24 BMI result Body Mass Index 30.3 Appearance: Alert. Oriented X3. No acute distress. Head: normocephalic, atraumatic. Eyes: Pupils equal, round and reactive to light. ENT: Pharynx with moderate generalized posterior erythema, No tonsillar swelling or exudate. Neck: Normal inspection. Neck supple. CVS: Normal heart rate and rhythm. Pulses normal. Respiratory: No respiratory distress. Breath sounds decreased with the bilateral bases, dry cough with bronchospasm Abdomen: Soft and nontender. +BS x4 Skin: Skin warm and dry. Normal skin color. Normal skin turgor. No rashes. Extremities: No lower extremity edema. No joint swelling. Neuro/psych: Oriented X 3. No motor deficit. No sensory deficit. CN II-XII intact. Normal speech and cognition. Medications Administered Discontinued Medications Generic Name Dose Route Start Last Admin Trade Name Freq PRN Reason Stop Dose Admin Albuterol Sulfate 5 mg/ 0 mg 01/27/24 08:46 01/27/24 08:50 Albuterol/Ipratropium 3 ml INHALE 01/27/24 08:47 1 each ONCE ONE Administration Guaifenesin/Codeine Phosphate 10 ml 01/27/24 08:00 01/27/24 08:16 Guaifen/Codeine Sf 200/20/10ml 10 Ml Liquid PO 01/27/24 08:01 10 ml NOW STA Administration Prednisone 40 mg 01/27/24 08:00 01/27/24 08:16 Prednisone 20 Mg Tablet PO 01/27/24 08:01 40 mg ONCE ONE Administration Medical Decision Making Medical Decision Making [facility] Narrative: 38-year-old female with history of asthma presents to the ER for evaluation dry cough for the last 1 week along with bilateral rib pain from coughing. Arrival to ER she is oxygenating well, SpO2 100% on room air. Her lung sounds are diminished at the bases with a bronchospastic cough. She was given a bronchodilator along with p.o. steroids and antitussive. She tested negative for strep throat. Her chest x-ray wa clear, no evidence of PNA. viral swab was also negative. Clinical presentation most consistent with viral bronchitis causing acute asthma exacerbation. She was improved after treatment. Comfortable discharge home with prednisone, antitussive, albuterol. Encouraged follow-up with primary care doctor. Stable for discharge home, return precautions were discussed. Differential Diagnosis Differential Diagnoses: The differential diagnosis associated with the presentation includes Asthma exacerbation, strep, covid, flu, rsv, other viral syndrome, bronchitis, pneumonia, no evidence of peritonsillar abcsess or retropharyngeal abscess Admission/Observation Consideration of admission/observation: Escalation of care including admission/observation considered Improved after treatment Lab Data [facility] Lab Attestation statement: I reviewed the patient's lab results. Labs: Lab Results 01/27/24 Range/Units 07:38 Influenza Type A (PCR) NEGATIVE (Negative) Influenza Type B (PCR) NEGATIVE (Negative) RSV RNA Qual (PCR) NEGATIVE (Negative) SARS-CoV-2 RNA (RT-PCR) NEGATIVE (Negative) S. pyogenes GrpA MARNIE Negative (Negative) Independent Interpretation I performed an independent interpretation of an: Plain X-Ray Interpretation: Chest x-ray is clear without any focal infiltrate to suggest pneumonia Radiology Impression Discussion of test interpretation with radiology: I have reviewed the radiologist's reading. Radiologist Impression: EXAMINATION: XR CHEST CLINICAL INFORMATION: Cough COMPARISON: Right rib radiograph from 09/07/2017 TECHNIQUE: 2 views of the chest were obtained. FINDINGS: No focal consolidation. No pneumothorax. Trachea is midline. Cardiac mediastinal silhouette is not enlarged. No pleural effusion. Osseous structures are intact. Soft tissues are unremarkable. XR/XR chest 2V IMPRESSION: No acute cardiopulmonary process. Independent Historian Clinical information obtained from an independent historian. History obtained from or confirmed by: Spouse External Record Review External record reviewed: Outpatient record, Prior outpatient labs and Prior outpatient radiology Prescription Management I considered prescription management with: Antiviral and Antibiotic Chronic Conditions Patient?s care impacted by: Other (asthma) Critical Care Time Critical Care Time Critical Care Time: No Discharge Plan Discharge Clinical Impression: Bronchitis Asthma Qualifiers: Asthma severity: unspecified severity Asthma persistence: unspecified Asthma complication type: unspecified Qualified Code(s): J45.909 - Unspecified asthma, uncomplicated Patient Disposition: Home, Self-Care Instructions: Acute Bronchitis (ED) Additional Instructions: Your chest x-ray today did not show any evidence of pneumonia. You tested negative for COVID, flu, RSV, strep throat. Take the prescribed prednisone as directed, started tomorrow as you were given 1st dose today in the ER. Use the rescue inhaler, albuterol, every 4-6 hours as needed for shortness of breath and wheezing. Once you are done with the prednisone, start the Advair inhaler, 2 times a day. Make sure you rinse your mouth after this so you do not get thrush. This is maintenance for your asthma. Follow-up with your primary care doctor. If you develop new or worsening symptoms call 911 or come back to the ER for further evaluation. Prescriptions: New fluticasone propion-salmeterol [Advair Diskus] 250-50 mcg/dose blister with device 1 inh inhalation BID Qty: 60 0RF albuterol sulfate 90 mcg/actuation HFA aerosol inhaler 2 puff inhalation Q6H PRN (Reason: shortness of breath or wheezing) Qty: 8.5 0RF prednisone 20 mg tablet 40 mg PO DAILY Qty: 8 0RF benzonatate 100 mg capsule 100 mg PO TID PRN (Reason: cough) Qty: 30 0RF No Action cyanocobalamin (vitamin B-12) 1,000 mcg tablet 1,000 mcg PO DAILY Qty: 30 2RF lorazepam 0.5 mg tablet 1 tab PO DAILY PRN (Reason: Anxiety) oxycodone-acetaminophen [Endocet] 5-325 mg tablet 1 tab PO Q6H PRN (Reason: pain (scale score 7-10)) Qty: 10 0RF linaclotide 145 mcg capsule 145 mcg PO DAILY Qty: 30 1RF Referrals: Name,MD Tobin [Primary Care Provider] - Print Language: Sami
[2024-01-27] MEDS: guaiFEN/Codeine SF 200/20/10ML 10 ML LIQUID PO (08:16)
[2024-01-27] MEDS: predniSONE 20 MG TABLET 40 MG PO (08:16)
[2024-01-27 08:27] LABS: Influenza A PCR NEGATIVE (Negative); Influenza B PCR NEGATIVE (Negative); Resp Syncy Virus RNA Qual PCR NEGATIVE (Negative); SARS COV2 PCR INHOUSE NEGATIVE (Negative)
[2024-01-27] MEDS: Albuterol Sulfate 5 MG, Albuterol/Iprat 2.5/0.5MG 3 ML 3 ML INHALE (08:50)
[2024-01-27 08:53] VITALS: PULSE 82; RESP 18; O2SAT 96
--- NOTE | 2024-01-27 09:14 | PC.NURSE ---
pt a&ox3, vss, lungs exp wheezing throughout, pt able to speak in full sentences, rr equal and non labored post updraft, pt to be discharged home.
[2024-01-27 09:15] VITALS: BP 128/75; PULSE 84; RESP 20; TEMP 36.6; O2SAT 98
== END 2024-01-27 09:16 | disposition home or self-care (01) ==
PROVIDERS: Emergency Provider Emergency Medicine; PCP Internal Medicine Geriatric Medicine
DX: J40 Bronchitis, not specified as acute or chronic (principal); R05.9 Cough, unspecified; J02.9 Acute pharyngitis, unspecified; R06.02 Shortness of breath; F17.210 Nicotine dependence, cigarettes, uncomplicated; Z03.818 Encounter for observation for suspected exposure to other biological agents ruled out
CPT/HCPCS: 0241U; 71045; 71046; 87651; 94640; 99283; 99284

== ENCOUNTER 2024-02-27 10:40 | Outpatient (REF) | payer MEDICAID, SELFPAY ==
--- NOTE | ~2024-02-27 | US_ITS ---
EXAMINATION: MM DIAGNOSTIC DIGITAL BREAST TOMOSYNTHESIS, BILATERAL CLINICAL INFORMATION: Diagnostic exam; follow-up focal asymmetry right breast 12:00 axis; follow-up to asymmetries left breast, superior middle depth on MLO view, and lateral breast middle depth on CC view. COMPARISON: Mammography: 12/26/2023 and available priors. US BREAST LIMITED, BILATERAL TECHNIQUE: Digital breast tomosynthesis is performed in the following views: Full field bilateral mediolateral views, and 3-D spot compression left CC, left MLO, and right mediolateral views obtained. This was followed by targeted bilateral breast ultrasound. FINDINGS: The breasts are heterogeneously dense, which may obscure small masses (ACR BI-RADS breast composition Category c). (accession [id number]), There are scattered areas of fibroglandular density (ACR BI-RADS breast composition Category b). (accession [id number]) Spot compression views of the right breast as well as a full field mediolateral demonstrate persistence of an oval mass in the 12:00 axis measuring 8 mm in diameter. This will be evaluated with ultrasound. Spot compression views of the left breast as well as full-field mediolateral views demonstrate a subtle oval possibly obscured mass in the upper outer quadrant measuring 1.2 cm (versus a prominent parenchymal island of normal tissue), and a second circumscribed mass or towards the nipple, but still in the upper outer quadrant, measuring 8 mm in diameter. We will evaluate these with ultrasound. ULTRASOUND: CLINICAL INFORMATION: Evaluate mammographic abnormalities right breast 12:00 axis, left breast upper outer quadrant. COMPARISON: None relevant. TECHNIQUE: Targeted sonographic evaluation was performed using a high frequency linear transducer. Attention was given to the 12:00 axis right breast, and upper outer quadrant left breast. Selected archived documentation. FINDINGS: RIGHT BREAST: -There are simple cysts present in the left breast measuring 9 mm at the 2:00 axis, 6 cm from the nipple, 5 mm at the same region, and a 6 mm simple cysts present left breast 2:00 axis, 6 cm from the nipple. These correlate with the finding on mammography and are benign. LEFT BREAST: At the 11:00 axis, 2 cm from the nipple, there is a 9 mm simple cyst present, likely correlating with the mammographic abnormality given depth. This is benign. No suspicious findings in either breast. US/US breast BI limited mamm only IMPRESSION: There are no findings suspicious for malignancy in either breast. There are simple cysts in both breasts as detailed, which are benign. No further follow-up recommended. Recommend the patient return to routine screening. OVERALL ASSESSMENT: Mammography: BI-RADS 2 - Benign Findings Ultrasound: BI-RADS 2 - Benign Findings RECOMMENDATION: 1 year F/U This patient's information was entered into a reminder system with a target due date for their next mammogram. Electronically signed by: Pete Scott MD 02/27/2024 11:38 AM GIANNI
== END 2024-02-27 10:41 | disposition home or self-care (01) ==
LOC: HO.MAMMO 10:40
PROVIDERS: PCP Internal Medicine Geriatric Medicine; Visit Provider Internal Medicine Geriatric Medicine
DX: N60.02 Solitary cyst of left breast (principal); N60.01 Solitary cyst of right breast; N64.89 Other specified disorders of breast
CPT/HCPCS: 76642; 77062; 77066

== ENCOUNTER → 2024-02-27 11:00 | Outpatient (BNV) | payer MEDICAID, SELFPAY | PROVIDERS: PCP Internal Medicine Geriatric Medicine; Visit Provider Radiology Diagnostic Radiology | DX: N60.01 Solitary cyst of right breast (principal); N60.02 Solitary cyst of left breast; R92.333 Mammographic heterogeneous density, bilateral breasts | CPT/HCPCS: 76642; 77062; 77066 ==

== ENCOUNTER 2025-03-30 10:02 | Emergency (ER) | payer OTHER, SELFPAY ==
--- NOTE | ~2025-03-30 | XR_ITS ---
CLINICAL HISTORY: cough 2 view chest x-ray. Comparison: CR/[place]/SR - XR CHEST 2V - 01/27/24 08:07 EDT Findings: The lungs are adequately expanded. No focal consolidation. No effusion or pneumothorax. Cardiac and mediastinal contours are within normal limits. No acute osseous abnormality Impression: No acute process. This document has been electronically signed by: Ron Lancaster MD on 03/30/2025 12:09:14
[2025-03-30 10:18] VITALS: BP 142/76; PULSE 95; RESP 16; TEMP 37.6; O2SAT 100; BMI 29.5
--- OUTSIDE RECORDS SUMMARY | 2025-03-30 10:47 | XMS_ITS | Encounter Summary ---
Author Organization [facility] Address [address] [facility] [address] [place] [address] Care Team Providers Care Control Valve Mechanic Name Role Phone Name, Tobin ROBLES Primary Care Provider [phone] Reason for Visit * Reason Comments Med Refill Encounter Details Date Type Department Care Team ([facility] Contact Info) Description 02/28/2024 Refill [facility] [address] [place], [place] [phone] Name, MD Tobin [address] [place] [address] Anxiety Social History Tobacco Use Types Packs/Day Years Used Date Smoking Tobacco: Every Day Cigarettes Passive Smoke Exposure: Current Smokeless Tobacco: Never Alcohol Use Standard Drinks/Week Comments Yes 0 (1 standard drink = 0.6 oz pur e alcohol) social Depression Answer Date Recorded Patient Health Questionnaire-9 Score 16 11/18/2022 Housing Stability Answer Date Recorded What is your housing situation today? I have yamil ervin 02/06/[address] you li ve. Do you have problems with any of the following? None of the above 02/06/2023 Food Insecurity Answer Date Recorded Within the past 12 months, y ou worried that your food would run out before you got money to buy more: Never True 02/06/2023 Within the past 12 months,th e food you bought just didn't last and you didn't have enough money to get more: Never True Transportation Answer Date Recorded In the past 12 months, has l ack of transportation kept you from medical appts, meetings, work or from getting things needed for daily living? No 02/06/2023 Utilities Answer Date Recorded In the past 12 months, has t he electric, gas, oil or water company threatened to shut off services in your home? No 02/06/2023 Depression Answer Date Recorded Patient Health Questionnaire-2 Score 6 11/18/2022 Comments No Sex and Gender Information Value Date Recorded Sex Assigned at Female 02/07/2022 10:19 AM EDT Legal Sex Female 10:19 AM EDT Gender Identity Female 02/07/2022 10:19 AM EDT Sexual Orientation Straight 02/07/2022 10 :19 AM EDT documented as of this encounter Plan of Treatment Upcoming Encounters Date Type Department Care Team (Late st Contact Info) Description 04/15/2025 9:15 AM EST Office Visit [facility] [address] [place] [phone] Name, MD Tobin [address] [place] [phone] documented as of this encounter Visit Diagnoses Diagnosis Anxiety Anxiety state, unspecified documented in this encounter Additional Health Concerns Assessment Noted Time PHQ-9 Depression Total Score: 16 023 11:08 AM EDT documented as of this encounter Care Teams Control Valve Mechanic Relationship Specialty Start Date End Date Name, MD Tobin [address] [place] [id number] PCP - General Family Medicine 07/15/15 documented as of this encounter
--- OUTSIDE RECORDS SUMMARY | 2025-03-30 10:47 | XMS_ITS | Encounter Summary ---
Author Organization [facility] Address [address] [facility] [address] [place] [address] Care Team Providers Care Canoe Builder Name Role Phone Name, Tobin ROBLES Primary Care Provider [phone] Reason for Visit * Reason Comments Med Refill Encounter Details Date Type Department Care Team ([facility] Contact Info) Description 12/22/2023 Refill [facility] [address] [place], [place] [phone] Zainab Anders CNM [address] [place] [address] Social History Tobacco Use Types Packs/Day Years [...] Description 04/15/2025 9:15 AM EST Office Visit [facility] [address] [place] [phone] Name, MD Tobin [address] [place] [phone] documented as of this encounter Visit Diagnoses Not on filedocumented in this encounter Additional Health Concerns Assessment Noted Time PHQ-9 Depression Total Score: 16 023 11:08 AM EDT documented as of this encounter Care Teams Canoe Builder Relationship Specialty Start Date End Date Name, MD Tobin [address] [place] [phone] PCP - General Family Medicine 07/15/15 documented as of this encounter
--- OUTSIDE RECORDS SUMMARY | 2025-03-30 10:47 | XMS_ITS | Clinical Summary ---
Author Organization [facility] Address [address] [place] [address] [place] [phone] Phone Care Team Providers Care School Counselor Name Role Phone [place], Cami Bernal MD Primary Care Provi abi Social History Tobacco Use Types Packs/Day Years Used Date Smoking Tobacco: Never Assessed Comments Unknown Sex and Gender Information Value Date Recorded Sex Assigned at Not on file Legal Sex Female 9:19 AM EST Gender Identity Not on file Sexual Orientation Not on file Plan of Treatment Not on file Medical Devices Not on file Insurance [facility] E[facility] EPO Member Subscriber Plan / Payer (Ef fective 2017-Present) Name:Nica Marc Relation to Subscriber:Self Name:Nica Marc Payer ID:[id number] Group ID:[id number] Type:HMO Address: [place] [id number] [place] [address] [place] [address] [place] [address] [facility] [employer] [facility] [place] [address] [employer] E[employer] [facility] EPO [facility] EPO Care Teams School Counselor Relationship Specialty Start Date End Date Jer, Cami Bernal MD [address] [place] [phone] PCP - General Family Medicine 02/20/17 Additional Source Comments The information contained in this document represents components of the legal health record. It is not the complete legal health record.[facility]
--- OUTSIDE RECORDS SUMMARY | 2025-03-30 10:47 | XMS_ITS | Encounter Summary ---
Author Organization [facility] Address [address] [place] [address] [address] [place] [address] Care Team Providers Care Stone Operator Name Role Phone Name, Tobin ROBLES Primary Care Provider [phone] Encounter Details Date Type Department Care Team ([facility] Contact Info) Description 05/17/2022 Orders Only [facility] [address] [place] [phone] Radha Bellamy LPN Social History Tobacco Use Types Packs/Day Years Used Date Smoking Tobacco: Every Day Cigarettes Passive Smoke Exposure: Current Smokeless Tobacco: Never Alcohol Use Standard Drinks/Week Comments Never 0 (1 standard drink = 0.6 oz pur e alcohol) Comments No Sex and Gender Information Value Date Recorded Sex Assigned at Female 02/07/2022 10:19 AM EDT Legal Sex Female 10:19 AM EDT Gender Identity Female 02/07/2022 10:19 AM EDT Sexual Orientation Straight 02/07/2022 10 :19 AM EDT documented as of this encounter Plan of Treatment Upcoming Encounters Date Type Department Care Team (Late Contact Info) Description 04/15/2025 9:15 AM EST Office Visit [facility] [address] [place] [address] Name, MD Tobin [address] [place] [phone] documented as of this encounter Visit Diagnoses Not on filedocumented in this encounter Care Teams Stone Operator Relationship Specialty Start Date End Date NameTobin MD [address] [place] [phone] PCP - General Family Medicine 07/15/15 documented as of this encounter
--- OUTSIDE RECORDS SUMMARY | 2025-03-30 10:47 | XMS_ITS | Encounter Summary ---
Author Organization [facility] Address [address] [facility] [address] [place] [phone] Phone Care Team Providers Care Security Systems Technician Name Role Phone [place], Cami Bernal MD Primary Care Provi abi Encounter Details Date Type Department Care Team (Late st Contact Info) Description 02/20/2017 Ancillary Orders [facility] [address] [place] [address] Lyle Samaniego MD [address] [place] [phone] [email or web address] Syncope, unspecified syncope type; Palpitation; Chest pain, unspecified type Social History Tobacco Use Types Packs/Day Years Used Date Smoking Tobacco: Never Assessed Comments Unknown Sex and Gender Information Value Date Recorded Sex Assigned at Not on file Legal Sex Female 9:19 AM EST Gender Identity Not on file Sexual Orientation Not on file documented as of this encounter Plan of Treatment Not on file documented as of this encounter Results * Holter Monitor 24 Hours (02/20/2017 9:43 AM EST) Anatomical Region Laterality Modality Heart Other Narrative 02/20/2017 12:25 PM EST 24-hour Holter monitor report The underlying rhythm is a normal sinus rhythm with average heart rate of 76 bpm, minimum heart rate 53 beats her minute and maximum heart rate 131 bpm. There was a single isolated PVC and very rare isolated premature atrial contractions. There were no tachyarrhythmias or other abnormalities. Normal Holter monitor. Lyle Samaniego MD [facility] ORDER[facility] Final Result documented in this encounter Visit Diagnoses Diagnosis Syncope, unspecified syncope type Palpitation Palpitations Chest pain, unspecified type documented in this encounter Care Teams Security Systems Technician Relationship Specialty Start Date End Date Jer, Cami Bernal MD [address] [place] [phone] PCP - General Family Medicine 02/20/17 documented as of this encounter Additional Source Comments The information contained in this document represents components of the legal health record. It is not the complete legal health record.[facility]
--- OUTSIDE RECORDS SUMMARY | 2025-03-30 10:47 | XMS_ITS | Encounter Summary ---
Author Organization [employer] Address [address] [place] [address] [address] [address] Care Team Providers Care Tests Superintendent Name Role Phone Name, Tobin ROBLES Primary Care Provider [phone] Reason for Visit * Reason Comments Med Refill Encounter Details Date Type Department Care Team ([facility] Contact Info) Description 11/18/2022 Refill [facility] [address] [place] [phone] NameTobin MD [address] [place] [phone] Social History Tobacco Use Types Packs/Day Years Used Date Smoking Tobacco: Every Day Cigarettes Passive Smoke Exposure: Current Smokeless Tobacco: Never Alcohol Use Standard Drinks/Week Comments Yes 0 (1 standard drink = 0.6 oz pur e alcohol) social Depression Answer Date Recorded Patient Health Questionnaire-9 Score 16 11/18/2022 Depression Answer Date Recorded Patient Health Questionnaire-2 Score 6 11/18/2022 Comments No Sex and Gender Information Value Date Recorded Sex Assigned at Female 02/07/2022 10:19 AM EDT Legal Sex Female 10:19 AM EDT Gender Identity Female 02/07/2022 10:19 AM EDT Sexual Orientation Straight 02/07/2022 10 :19 AM EDT documented as of this encounter Plan of Treatment Upcoming Encounters Date Type Department Care Team ([facility] Contact Info) Description 04/15/2025 9:15 AM EST Office Visit [facility] [address] [place] [address] [phone] NameTobin MD [address] [place] [address] [phone] documented as of this encounter Visit Diagnoses Not on filedocumented in this encounter Additional Health Concerns Assessment Noted Time PHQ-9 Depression Total Score: 16 023 11:08 AM EDT documented as of this encounter Care Teams Tests Superintendent Relationship Specialty Start Date End Date Name, MD [address] [place] [address] PCP - General Family Medicine 07/15/15 documented as of this encounter
--- OUTSIDE RECORDS SUMMARY | 2025-03-30 10:47 | XMS_ITS | Clinical Summary ---
Author Organization [employer] Address [address] [facility] [address] [place] [address] Care Team Providers Care Reading Professor Name Role Phone Name, Tobin ROBLES Primary Care Provider [phone] Allergies No known active allergies Medications montelukast (Singulair) 10 MG tabletIndications :Moderate persistent asthma with exacerbation take 1 tablet by oral route every day in the evening 90 tablet 1 3 Active albuterol (2.5 MG/3ML) 0.083% nebulizer solutionIndicatio ns:Moderate persistent asthma with exacerbation INHALE 3ML VIA NEBULIZER EVERY 6 HOURS NEEDED FOR WHEEZING OR SHORTNESS OF BREATH 75 mL 1 3 Active traZODone (Desyrel) 50 MG tabletIndications :Anxiety TAKE 1 TABLET BY MOUTH EVERY DAY AT BEDTIME 30 tablet 3 4 Active cetirizine (ZyrTEC) 10 MG tablet Take 1 tablet (10 mg) by mouth Once per day. Prn. 30 tablet 5 Active diphenhydrAMINE (BENADryl) 25 MG capsule Take 2 capsules (50 mg) by mouth every 6 (six) hours if needed for itching. May take 1-2 capsules prn rash or itching 30 capsule 5 04/30/19 26 Active EPINEPHrine (Epipen) 0.3 MG/0.3ML injection syringe Inject 0.3 mL (0.3 mg) as directed 1 (one) time if needed for anaphylaxis. Inject into upper leg. Call 911 after use. 2 each 5 Active Blood Pressure kit 1 each 2 times daily. 1 kit 5 04/30/19 26 Active Fluticasone-Salme terol 250-50 MCG/ACT aerosol powder Take 1 Inhalation by mouth 2 times daily. 60 each 3 5 Active albuterol 108 (90 Base) MCG/ACT inhaler Inhale 2 puffs every 6 (six) hours if needed for wheezing. 18 g 11 5 10/29/19 26 Active buPROPion SR (Wellbutrin SR) 150 MG 12 hr tabletIndications :Tobacco use,Depression with anxiety TAKE 1 TABLET BY MOUTH TWICE DAILY. DO NOT CRUSH, CHEW, OR SPLIT. 60 tablet 2 5 Active LORazepam (Ativan) 0.5 MG tabletIndications :Anxiety TAKE 1 TABLET(0.5 MG) BY MOUTH EACH DAY FOR UP TO 14 DAYS NEEDED FOR ANXIETY 14 tablet 5 Active ibuprofen 800 MG tabletIndications :Depression with anxiety TAKE 1 TABLET BY MOUTH EVERY MORNING, NOON AND EVERY NIGHT AT BEDTIME NEEDED FOR MILD PAIN FOR UP TO 20 DAYS 50 tablet 5 Active fluticasone (Flonase) 50 MCG/ACT nasal sprayIndications: Influenza-like symptoms ADMINISTER 1 SPRAY IN EACH NOSTRIL EVERY DAY 16 g 12 5 Active Active Problems Problem Noted Date Diagnosed Date Asthma 10/25/2024 [place] of toe 10/25/2024 SBO (small bowel obstruction) 10/25/2024 Angioedema of lips 04/30/2024 IUD (intrauterine device) in place 12/21/2023 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 Overview (11/18/2022): She had incidentally found to have a 1.2cm homogenous left adrenal nodule on imaging 03/2021 normal endocrine work up 2021, recommended repeat CT one year, CT on 03/31 was normal Submandibular sialolithiasis 11/17/2022 Urinary incontinence, mixed 11/17/2022 Urticaria due to cold 04/25/2018 Numbness of hand 02/28/2018 COPD (chronic obstructive pulmonary disease) 03/2018 Overview (06/14/2023): [address] [address] DEPARTMENT OF PULMONARY MEDICINE NAME: NICA MCKEON DATE OF : 81 LOCATION: [facility] #: [id number] SERVICE DATE: 10/09/17 ORDERING MD: TOBIN CARTAGENA MD SEX: Female PULMONARY FUNCTION TEST Short of breath: YES, STAIRS AND AT NIGHT TRYING TO SLEEP Cough: CHRONIC, NONPRODUCTIVE Medications: FLOVENT, PROAIR Chief Complaint: COPD,ASTHMA Smoking Hx: 13 YRS, 2 PPD. QUIT 8 YRS AGO Comments: ALL MANEUVERS PERFORMED WITH EXCELLENT EFFORT PT COUGHED THROUGHOUT TEST [place] HX OF ASTHMA SPIROMETRY PRE-RX POST-RX PRED BEST %PRED BEST %PRED %CHG FVC Liters 4.13 3.49 84 3.75 90 7 FEV1 Liters 3.41 2.35 68 2.76 80 17 FEV1/FVC % 84 67 73 GHA49-55J/sec 3.50 1.42 40 2.49 71 75 PEF L/sec 7.48 4.95 66 5.22 69 5 MVV L/min 112 72 64 87 77 21 LUNG VOLUMES TLC Liters 5.50 4.70 85 RV Liters 1.62 1.80 111 RV/TLC % 29 38 FRCDil Liters 3.05 2.69 88 VC Liters 3.88 3.06 78 DIFFUSION DLCO mL/min/mmHg 28.30 24.62 86 DLCO/VA L/min/mmHg 5.15 5.06 98 VA Liters 4.87 ABGs pH: pCO2: mmHg pO2: mmHg Base excess: SaO2 at rest: w/exercise: after excercise Pulse at rest: w/exercise: after excercise RT: ABHAY BAILEY INTERPRETATION: Forced vital capacity is normal. FEV1 is slightly decreased. FEF 25-75 is markedly decreased. MVV moderately decreased. Post bronchodilator therapy: There is significant improvement in FEV1, FEF 25-75, and MVV. Total lung capacity and residual volume: Normal. Diffusion capacity: Normal. IMPRESSION: 1. Mild to moderate degree of obstructive airway disorder. 2. There is partial reversibility after bronchodilator therapy. Dictated by JJ JONES MD Status: Draft Electronically Signed by on @ Dict: 10/10/17 @ /Trans: 10/10/17 @1043 /KEYSOHAR Report #: [id number] Sialoadenitis of submandibular gland 02/19/2018 Anxiety 11/29/2016 Moderate episode of recurren t major depressive disorder ([facility]) 11/29/2016 Panic attacks 11/29/2016 Migraine 10/28/2011 Current smoker 08/23/2011 Resolved Problems Problem Noted Date Diagnosed Date Resolved Date Adrenal nodule 10/25/2024 10/28/2024 Bronchitis 10/25/2024 10/28/2024 LLQ pain 10/25/2024 10/28/2024 Nausea & vomiting 10/25/2024 10/28/2024 Syncope and collapse 11/29/2016 024 Ankle pain 10/04/2016 06/14/2023 Dizziness 09/01/2015 12/21/2023 Depressive disorder 10/28/2011 10/29/19 25 Chronic low back pain 08/23/20112023 Encounters Date Type Department Care Team Description 01/26/2025 Refill [facility] [address] [place] [address] Name, MD Tobin Influenza-like symptoms 01/25/2025 Refill [facility] [address], [place] [phone] Name, MD Tobin Anxiety; Depression with anxiety 01/23/2025 Telephone [facility] [address], [place] [phone] Vlad Chan MA nov recalls from Last 3 Months Immunizations Immunization Administration Dates Next Due Hep B, adult 01/17/2014,12/16/2013 Influenza Injectable Quadriv alant Preservative Free IIV4 MDCK 03/28/2020 Influenza injectable quadriv alent IIV4 with preservative 05/13/2019,02/28/2018,01/20/2017,06/08 Influenza injectable quadriv alent preservative free 04/05/2016 Influenza, IIV3, injectable 01/17/2014, 1 Influenza, Split (incl. edenilson fied surface antigen) 05/15/2012 Influenza, seasonal, injecta ble, preservative free 03/28/2024 Pneumococcal Conjugate PCV 20 06/14/2023 Pneumococcal Polysaccharide PPSV23 05/31/2011 Tdap 06/14/2023,05/15/2012 Family History Medical History Relation Name Comments Breast cancer Mother's Sister Relation Name Status Comments Mother's Sister Social History Tobacco Use Types Packs/Day Years Used Date Smoking Tobacco: Every Day Cigarettes Passive Smoke Exposure: Current Smokeless Tobacco: Never Tobacco Cessation:Ready to Q uit: Not Asked; Counseling Given: Not Answered Alcohol Use Standard Drinks/Week Comments Yes 0 (1 standard drink = 0.6 oz pur e alcohol) social Depression Answer Date Recorded Patient Health Questionnaire-9 Score 7 03/28/2024 Patient Health Questionnaire-9 Score 7 03/28/2024 Last PHQ-9: Questionnaire Data Not on file 1 05/29/2023 Housing Stability Answer Date Recorded What is your housing situation today? I have yamil ervin 03/28/[address] you li ve. Do you have problems with any of the following? None of the above 03/28/2024 Food Insecurity Answer Date Recorded Within the past 12 months, y ou worried that your food would run out before you got money to buy more: Sometimes True 2023 Within the past 12 months,th e food you bought just didn't last and you didn't have enough money to get more: Never True 03/28/2024 Transportation Answer Date Recorded In the past 12 months, has l ack of transportation kept you from medical appts, meetings, work or from getting things needed for daily living? No 03/28/2024 Utilities Answer Date Recorded In the past 12 months, has t he electric, gas, oil or water company threatened to shut off services in your home? No 03/28/2024 Depression Answer Date Recorded Patient Health Questionnaire-2 Score 3 03/28/2024 Internet Access Answer Date Recorded Internet Access Q1 Yes 03/28/2024 Internet Access Q2 Not on file 03/28/2024 Comments No Sex and Gender Information Value Date Recorded Sex Assigned at Female 02/07/2022 10:19 AM EDT Legal Sex Female 10:19 AM EDT Gender Identity Female 02/07/2022 10:19 AM EDT Sexual Orientation Straight 02/07/2022 10 :19 AM EDT Last Filed Vital Signs Vital Sign Reading Time Taken Comments Blood Pressure 132/87 10/28/2024 10:04 AM EDT Pulse 63 10/28/2024 10:04 AM EDT Temperature 36.1 C (96.9 F) 10/28/2024 10:04 AM EDT Respiratory Rate 18 10/28/2024 10:04 AM EDT Oxygen Saturation 98% 10/28/2024 10:04 AM EDT Inhaled Oxygen Concentration - - Weight 89.2 kg (196 lb 9.6 oz) 10/28/2024 10:04 AM EDT Height 170.2 cm (5' 7 ) 10/28/2024 10:04 AM EDT Body Mass Index 30.79 10/28/2024 10:04 AM EDT Plan of Treatment Upcoming Encounters Date Type Department Care Team (Late st Contact Info) Description 04/15/2025 9:15 AM EST Office Visit [facility] [address] [place] [id number] Name, MD Tobin [address] [place] [address] Health Maintenance Due Date Last Done Comments HIV Screening 1985 Family Planning (PISQ) 07/10/1998 HPV Vaccines (1 - 3-dose series) 07/10/1998 Hepatitis C Screening 07/10/2001 Hepatitis B Vaccines (3 of 3 - 19+ 3-dose series) 06/15/2014 01/17/2014, 12/16/2013 COVID-19 Vaccine ( season) 2024 08/26/2020, 07/29/2020 Influenza Vaccine (#1) 2024 , 03/28/2020, 05/13/2019, Additional history exists Alcohol/Substance Use Screening 03/28/2025 03/28/2024 Depression Screening 03/28/2025 03/28/2024, 03/28/20 24 SDOH Screening 03/28/2025 03/28/2024 Disability Screening 10/28/2025 10/28/2024 Tobacco Screening 10/28/2025 10/28/2024 Mammogram 02/26/2026 02/27/2024, 02/08, 12/26/2023 Cervical Cancer Screening 12/01/2026 HPV/Cotest 12/01/2026 12/01/2021, 11/28/2018 Pap Smear 12/01/2026 12/01/2021, 12/01/2021 Lipid Panel 06/14/2028 06/15/2023 DTaP/Tdap/Td Vaccines (3 - Td or Tdap) 06/13/2033 06/14/2023, 05/15/2012 Zoster Vaccines (1 of 2) 07/10/2033 RSV Patients and Patients Aged 60 years or older (1 - 1-dose 75+ series) 07/10/2058 Pneumococcal Vaccine: Pediatrics (0 to 5 Years) and At-Risk Patients (6 to 49) Years Completed 06/14/2023, 05/31/2011 HIB Vaccines Aged Out No longer eligi ble based on patient's age to complete this topic Hepatitis A Vaccines Aged Out No long er eligible based on patient's age to complete this topic IPV Vaccines Aged Out No longer eligi ble based on patient's age to complete this topic Meningococcal B Vaccine Aged Out No l onger eligible based on patient's age to complete this topic Meningococcal Vaccine Aged Out No shar elvin eligible based on patient's age to complete this topic RSV under 20 months Aged Out No longe r eligible based on patient's age to complete this topic Rotavirus Vaccines Aged Out No longer eligible based on patient's age to complete this topic Procedures Procedure Name Priority Date/Time Associated Diagnosis Comments BI US BREAST LIMITED BILATERAL Routine 02/27/2024 11:30 AM EST LIPID PANEL, STANDARD Routine 06/15/2023 8:11 AM EST Screening for cholesterol level THINPREP IMAGING PAP AND HPV MRNA E6/E7 WITH REFLEX TO HPV 16,18/45 Routine 12/01/2021 9:24 AM EDT from Last 3 Months or Most Recently Relevant to Health Maintenance Results * BI US Breast Limited Bilateral (02/27/2024 11:30 AM EST) Anatomical Region Laterality Modality Breast Bilateral Ultrasound 02/27/2024 11:3 0 AM EST Narrative 02/27/2024 11:41 AM EST [facility] [address] [place] [address] Ultrasound Report Signed Patient: Nica Mckeon MR#: [id number] : 1985 Acct:[id number] Age/Sex: 38 / F ADM Date: 02/27/24 Loc: HO.MAMMO Attending Dr: Tobin Cartagena MD Ordering Physician: Tobin Cartagena MD Date of Service: 02/27/24 Procedure(s): US breast BI limited mamm only Accession Number(s): [id number] cc: Tobin Cartagena MD EXAMINATION: MM DIAGNOSTIC DIGITAL BREAST TOMOSYNTHESIS, BILATERAL CLINICAL INFORMATION: Diagnostic exam; follow-up focal asymmetry right breast 12:00 axis; follow-up to asymmetries left breast, superior middle depth on MLO view, and lateral breast middle depth on CC view. COMPARISON: Mammography: 12/26/2023 and available priors. US BREAST LIMITED, BILATERAL TECHNIQUE: Digital breast tomosynthesis is performed in the following views: Full field bilateral mediolateral views, and 3-D spot compression left CC, left MLO, and right mediolateral views obtained. This was followed by targeted bilateral breast ultrasound. FINDINGS: The breasts are heterogeneously dense, which may obscure small masses (ACR BI-RADS breast composition Category c). (accession [id number]), There are scattered areas of fibroglandular density (ACR BI-RADS breast composition Category b). (accession [id number]) Spot compression views of the right breast as well as a full field mediolateral demonstrate persistence of an oval mass in the 12:00 axis measuring 8 mm in diameter. This will be evaluated with ultrasound. Spot compression views of the left breast as well as full-field mediolateral views demonstrate a subtle oval possibly obscured mass in the upper outer quadrant measuring 1.2 cm (versus a prominent parenchymal island of normal tissue), and a second circumscribed mass or towards the nipple, but still in the upper outer quadrant, measuring 8 mm in diameter. We will evaluate these with ultrasound. ULTRASOUND: CLINICAL INFORMATION: Evaluate mammographic abnormalities right breast 12:00 axis, left breast upper outer quadrant. COMPARISON: None relevant. TECHNIQUE: Targeted sonographic evaluation was performed using a high frequency linear transducer. Attention was given to the 12:00 axis right breast, and upper outer quadrant left breast. Selected archived documentation. FINDINGS: RIGHT BREAST: -There are simple cysts present in the left breast measuring 9 mm at the 2:00 axis, 6 cm from the nipple, 5 mm at the same region, and a 6 mm simple cysts present left breast 2:00 axis, 6 cm from the nipple. These correlate with the finding on mammography and are benign. LEFT BREAST: At the 11:00 axis, 2 cm from the nipple, there is a 9 mm simple cyst present, likely correlating with the mammographic abnormality given depth. This is benign. No suspicious findings in either breast. US/US breast BI limited mamm only IMPRESSION: There are no findings suspicious for malignancy in either breast. There are simple cysts in both breasts as detailed, which are benign. No further follow-up recommended. Recommend the patient return to routine screening. OVERALL ASSESSMENT: Mammography: BI-RADS 2 - Benign Findings Ultrasound: BI-RADS 2 - Benign Findings RECOMMENDATION: 1 year F/U This patient's information was entered into a reminder system with a target due date for their next mammogram. Electronically signed by: Pete Scott MD 02/27/2024 11:38 AM EST Dictated By: Pete Scott MD Signed By: <Electronically signed by Pete Scott MD in OV> 02/27/24 1138 DD/ 1130 TD/TT: [employer]: Procedure Note Donotuseinterpreter, Image - [facility] [address] [place] [address] Ultrasound Report Signed Patient: Nica Mckeon EMR#: [id number] : 1985Acct:[id number] Age/Sex: 38 / FADM Date: 02/27/24 Loc: HO.MAMMO Attending Dr: Tobin Cartagena MD Ordering Physician: Name,Tobin ROBLES Date of Service: 02/27/24 Procedure(s): US breast BI limited mamm only Accession Number(s): [id number] cc: Name,Tobin ROBLES EXAMINATION: MM DIAGNOSTIC DIGITAL BREAST TOMOSYNTHESIS, BILATERAL CLINICAL INFORMATION: Diagnostic exam; follow-up focal asymmetry right breast 12:00 axis; follow-up to asymmetries left breast, superior middle depth on MLO view, and lateral breast middle depth on CC view. COMPARISON: Mammography: 12/26/2023 and available priors. US BREAST LIMITED, BILATERAL TECHNIQUE: Digital breast tomosynthesis is performed in the following views: Full field bilateral mediolateral views, and 3-D spot compression left CC, left MLO, and right mediolateral views obtained. This was followed by targeted bilateral breast ultrasound. FINDINGS: The breasts are heterogeneously dense, which may obscure small masses (ACR BI-RADS breast composition Category c). (accession [id number]), There are scattered areas of fibroglandular density (ACR BI-RADS breast composition Category b). (accession [id number]) Spot compression views of the right breast as well as a full field mediolateral demonstrate persistence of an oval mass in the 12:00 axis measuring 8 mm in diameter. This will be evaluated with ultrasound. Spot compression views of the left breast as well as full-field mediolateral views demonstrate a subtle oval possibly obscured mass in the upper outer quadrant measuring 1.2 cm (versus a prominent parenchymal island of normal tissue), and a second circumscribed mass or towards the nipple, but still in the upper outer quadrant, measuring 8 mm in diameter. We will evaluate these with ultrasound. ULTRASOUND: CLINICAL INFORMATION: Evaluate mammographic abnormalities right breast 12:00 axis, left breast upper outer quadrant. COMPARISON: None relevant. TECHNIQUE: Targeted sonographic evaluation was performed using a high frequency linear transducer. Attention was given to the 12:00 axis right breast, and upper outer quadrant left breast. Selected archived documentation. FINDINGS: RIGHT BREAST: -There are simple cysts present in the left breast measuring 9 mm at the 2:00 axis, 6 cm from the nipple, 5 mm at the same region, and a 6 mm simple cysts present left breast 2:00 axis, 6 cm from the nipple. These correlate with the finding on mammography and are benign. LEFT BREAST: At the 11:00 axis, 2 cm from the nipple, there is a 9 mm simple cyst present, likely correlating with the mammographic abnormality given depth. This is benign. No suspicious findings in either breast. US/US breast BI limited mamm only IMPRESSION: There are no findings suspicious for malignancy in either breast. There are simple cysts in both breasts as detailed, which are benign. No further follow-up recommended. Recommend the patient return to routine screening. OVERALL ASSESSMENT: Mammography: BI-RADS 2 - Benign Findings Ultrasound: BI-RADS 2 - Benign Findings RECOMMENDATION: 1 year F/U This patient's information was entered into a reminder system with a target due date for their next mammogram. Electronically signed by: Pete Scott MD 02/27/2024 11:38 AM EST Dictated By: Pete Scott MD Signed By: <Electronically signed by Pete Scott MD in OV> 02/27/24 1138 DD/ 1130 TD/TT: [employer]: us Tobin Name IMG US PROCEDURES Final Result * (ABNORMAL) Lipid Panel, Standard (06/15/2023 8:11 AM EST) Triglycerides 69 <150 mg/dL [facility] Comment:Desirable Triglyceri de: less than 150 mg/dLBorderline High Triglyceride 150-199 mg/dLHigh Triglyceride: 200-499 mg/dLVery High Triglyceride: greater than or equal to 5OO mg/dL Cholesterol 193 <200 mg/dL [facility] Comment:Desirable Cholestero l: less than 200 mg/dLBorderline High Cholesterol: 200-239 mg/dLHigh Cholesterol: greater than 239 mg/dL LDL Cholesterol Calculated 134(H) <100 mg/dL [facility] Comment:Desirable LDL: less than 100 mg/dLNear Optimal/Above Optimal LDL: 110- 129 mg/dLBorderline High LDL: 130-159 mg/dLHigh LDL: 160-189 mg/dLVery High LDL: greater than or equal to 190 mg/dL HDL Cholesterol 46 >40 mg/dL [facility] Comment:Desirable HDL: great er than 40 mg/dL Note: This HDL assay may give artificially low results in patients with liver disease. Blood Venous blood specimen / Unknown 06/15/2023 8:11 AM EST 06/15/2023 8:11 AM EST us Tobin Cartagena MD LAB BLOOD ORDERABLES Final Resul t [facility] [address] [place] [phone] * THINPREP TIS PAP AND HPV mRNA E6/E7 WITH REFLEX TO HPV 16,18/45 (12/01/2021 9:24 AM EDT) Clinical Information: None given [facility] COMMENT SEE COMMENT [facility] Comment: EXPLANATORY NOTE: The Pap is a screening test for cervical cancer. It is not a diagnostic test and is subject to false negative and false positive results. It is most reliable when a satisfactory sample, regularly obtained, is submitted with relevant clinical findings and history, and when the Pap result is evaluated along with historic and current clinical information. Comment: This Pap test has been evaluated with computer assisted technology. [facility] Cytotechnologis t: SEE COMMENT [facility] Comment: WAC, CT(ASCP) CT screening location: [place] [address] HPV nRNA E6/E7 Not Detected Not Detected [facility] Comment: Methodology: Beading Sawyer-Mediated Amplification This assay detects E6/E7 viral messenger RNA (mRNA) from 14 high-risk HPV types (16,18,31,33,35,39,45,51,52,56,58,59,66,68). Cervical sources are required for HPV testing. If a vaginal source from a patient who has had a total hysterectomy with removal of cervix was submitted, please contact the testing laboratory for alternative testing options. For additional information, please refer to http://education.[employer]/faq/WNT831k0 (This link if provided for information/ educational purposes only.) Infection Shift in vaginal george suggestive of bacterial vaginosis. [facility] Interpretation/ Result: Negative for intraepithelial lesion or malignancy. [facility] LMP: 11/17/21 [facility] Prev. BX: NONE GIVEN [facility] Prev. PAP: NIL/HPV NEG 2019,PREV HPV+ PAP [facility] SOURCE: None given [facility] Statement Of Adequacy: SEE COMMENT [facility] Comment: Satisfactory for evaluation. Endocervical/transformation zone component present. 12/01/2021 9:24 AM EDT us Zainab MCCULLOUGH LAB PATHOLOGY ORDERABLES Final Result [facility] [address] from Last 3 Months or Most Recently Relevant to Health Maintenance Insurance [employer] FULL Care Teams Reading Professor Relationship Specialty Start Date End Date Name, MD Tobin [address] [place] [phone] PCP - General Family Medicine 07/15/15
[2025-03-30 10:52] VITALS: BP 130/74; PULSE 84; RESP 16; TEMP 37.1; O2SAT 100
[2025-03-30 11:27] LABS: MANUAL DIFF FLAG NO
--- NOTE | 2025-03-30 11:27 | ED.HA ---
HPI - Headache General Chief Complaint: Headache Stated Complaint: Vomitting, cough, TRIPLETT, CP Time Seen by Provider: 03/30/25 11:07 Source: patient Mode of arrival: ambulatory Limitations: no limitations History of Present Illness ED Provider: Cheyanne Trevizo APRN HPI Narrative: 39-year-old female with a history of asthma, migraines, anxiety, depression presents the ER with complaints of nausea, vomiting, cough, body aches, chills and headache since yesterday. Patient denies any recent travel. No sick contacts. She denies any abdominal pain, diarrhea, chest pain, shortness of breath, neck pain, neck stiffness, skin rash. Related Data Home Medications ?Medication ?Instructions ?Recorded ?Confirmed lorazepam 0.5 mg tablet 1 tab PO DAILY PRN Anxiety 04/05/21 04/05/21 Previous Rx's ?Medication ?Instructions ?Recorded oxycodone-acetaminophen 5 mg-325 1 tab PO Q6H PRN pain (scale score 04/09/21 mg tablet (Endocet) 7-10) #10 tabs linaclotide 145 mcg capsule 145 mcg PO DAILY #30 caps 12/31/21 cyanocobalamin (vitamin B-12) 1,000 mcg PO DAILY #30 tabs 06/12/22 1,000 mcg tablet albuterol sulfate 90 mcg/actuation 2 puff inhalation Q6H PRN 01/27/24 aerosol inhaler shortness of breath or wheezing #8.5 grams benzonatate 100 mg capsule 100 mg PO TID PRN cough #30 caps 01/27/24 fluticasone 250 mcg-salmeterol 50 1 inh inhalation BID #60 ea 01/27/24 mcg/dose blistr powdr for inhalation (Advair Diskus) prednisone 20 mg tablet 40 mg (2 x 20 mg) PO DAILY #8 tabs 01/27/24 ondansetron 4 mg disintegrating 4 mg PO Q6H PRN nausea and 03/30/25 tablet vomiting #12 tabs Allergies Allergy/AdvReac Type Severity Reaction Status Date / Time No Known Allergies Allergy Unknown U Verified 03/30/25 10:22 Review of Systems Review of Systems: Yes all other systems are reviewed and are negative Constitutional: Constitutional: Reports no additional constitutional complaints, Reports body ache(s), Reports chills, Denies fever(s), Reports headache(s) and Denies weakness Eyes: Eyes: Reports no additional eye complaints and Denies change in vision ENT: Reports system reviewed and no additional complaints, except as documented, Denies dizziness, Reports headache(s), Denies nasal congestion, Denies nasal discharge and Denies neck pain Cardiovascular: Cardiovascular: Reports no additional cardiovascular complaints, Denies chest pain, Denies leg edema and Denies dyspnea Respiratory: Respiratory: Reports no additional respiratory complaints, Reports cough and Denies dyspnea Gastrointestinal: Gastrointestinal: Reports no additional gastrointestinal complaints, Denies abdominal pain, Denies diarrhea, Reports nausea and Reports vomiting Genitourinary: Genitourinary: Reports no additional female genitourinary complaints and Denies urinary incontinence Musculoskeletal: Musculoskeletal: Reports no additional musculoskeletal complaints, Denies back pain, Denies arthralgias, Denies joint swelling, Denies neck pain, Denies numbness and Denies tingling Integumentary/Breasts: Skin/Breast: Reports system reviewed and no additional complaints, except as docu and Denies rash Neurologic: Reports system reviewed and no additional complaints, except as documented, Denies Abnormal speech present, Denies dizziness, Reports headache(s), Denies numbness, Denies tingling and Denies weakness PMFSH Past Medical History Attestation statement: The following information was validated with the patient. Source: old records reviewed and nursing notes reviewed Medical History Asthma Anxiety Migraine Surgical History History of ankle surgery Tubal ligation status Social History Social History Housing: House Do you presently have visiting nurse or other home services: No Patient Tobacco Use Status: Current everyday Tobacco user Tobacco use type: Cigarette Cigarette Packs Per Day: 0 Cigarettes Per Day: 4 Years Smoked: 16 Smoked in Last 30 Days: No Second Hand Smoke Exposure: Yes Use of substances other than those prescribed or required for medical reasons: No Advance Directives: No Advance Directives Information Provided: No Do you have a plan to hurt others: No Plan Patient : No service: No Current occupational status: employed Physical Exam Vital Signs: Vital Signs: Last Vital Signs Temp 98.7 F 03/30/25 12:31 Pulse 80 03/30/25 12:31 Resp 18 03/30/25 12:31 BP 106/71 03/30/25 12:31 Pulse Ox 96 03/30/25 12:31 O2 Del Method Room Air 03/30/25 12:31 BMI result Body Mass Index 29.5 Const: General: cooperative, healthy appearing, comfortable and no acute distress Orientation/consciousness: patient oriented x3 Limitations: no limitations HEENT: Head: Yes normal to inspection Ears: hearing grossly normal bilaterally and TM's normal bilaterally General nose exam: Normal external nose present Face and sinus: Yes normal facial exam Mouth: Normal oral and palatal mucosa present Throat: Yes posterior oropharynx normal, Yes tonsils normal and Yes uvula midline Eyes: General: appearance normal, both eyes and all related structures Pupils: Equal, round and reactive pupils present Neck: Neck: Yes normal visual inspection, Yes full ROM, Yes no lymphadenopathy and Yes no meningeal signs Chest: Chest palpation & inspection: normal inspection of the chest Resp: Effort & Inspection: normal respiratory effort Auscultation: clear to auscultation bilaterally Cardio: Rate: regular rate Rhythm: regular rhythm Peripheral pulses: Peripheral pulses 2+ throughout GI: Inspection: Yes normal to inspection Palpation (GI): Soft to palpation and nontender Auscultation: normal bowel sounds Back/Spine/Pelvis: Thoracic/Lumbar Spine: thoracic and lumbar spine normal to inspection Skin: General skin exam: no rashes or lesions noted Neuro: General: patient oriented x3, no meningeal signs, no focal motor deficits and normal sensation to monofilament Cranial nerves: Yes Equal, round and reactive pupils present Cognition (Neuro): normal cognition Speech: No Abnormal speech present Gait exam (Neuro): Normal gait present Motor exam (neuro): 5/5 motor strength present throughout Extrem: General: Yes normal to inspection, Yes no calf tenderness and No edema Course Course Course Narrative: influenza a positive. No hypoxia or tachypnea. Patient is tolerating p.o.. Her labs show mildly elevated AST and ALT with normal total bili. She has no abdominal pain on exam. This is likely secondary to a viral illness. Her chest x-ray shows no signs of pneumonia. I will discharge her home with supportive measures. Reviewed worrisome signs and symptoms of when to return to the emergency room. Comfortable plan for discharge home. Medications Administered Discontinued Medications Generic Name Dose Route Start Last Admin Trade Name Reji PRN Reason Stop Dose Admin Acetaminophen 975 mg 03/30/25 11:26 03/30/25 11:35 Acetaminophen 325 Mg Tablet PO 03/30/25 11:27 975 mg ONCE ONE Administration Ondansetron HCl 4 mg 03/30/25 11:26 03/30/25 11:36 Ondansetron Odt 4 Mg Tab.Rapdis TRANSLINGU 03/30/25 11:27 4 mg ONCE ONE Administration Medical Decision Making Medical Decision Making MDM Narrative: 39-year-old female with a history of asthma, migraines, anxiety, depression presents the ER with complaints of nausea, vomiting, cough, body aches, chills and headache since yesterday. Patient denies any recent travel. No sick contacts. She denies any abdominal pain, diarrhea, chest pain, shortness of breath, neck pain, neck stiffness, skin rash. Normal exam VSS Likely viral syndrome. Will review labs, viral testing, CXR ordered from triage. Add strep testing. Will give APAP, zofran and re-assess Differential Diagnosis Differential Diagnoses: The differential diagnosis associated with the presentation includes Viral syndrome, influenza, strep pharyngitis, otitis media, PNA Admission/Observation Consideration of admission/observation: Escalation of care including admission/observation considered influenza A-positive with no hypoxia or tachypnea requiring supplemental oxygen and or admission Lab Data [facility] Lab Attestation statement: I reviewed the patient's lab results. 03/30/25 11:23 03/30/25 11:51 Labs: Lab Results 03/30/25 03/30/25 03/30/25 Range/Units 10:44 11:23 11:48 WBC 5.7 (4.8-10.8) X10*3/uL RBC 4.06 L (4.20-5.50) X10*6/uL Hgb 12.5 (12.0-16.0) g/dl Hct 36.7 L (37.0-47.0) % MCV 90.4 (80.0-98.0) fL MCH 30.8 (27.0-33.0) pg MCHC 34.1 (31.0-35.0) g/dl RDW 12.4 (11.0-16.0) % Plt Count 200 (160-400) X10*3/uL MPV 10.9 (9.4-12.3) fL Immature Gran % (Auto) 0.4 (0.0-0.4) % Neut % (Auto) 83.3 H (45-73) % Lymph % (Auto) 6.3 L (20-40) % Alfalfa % (Auto) 9.1 (2-11) % Eos % (Auto) 0.2 (0-4) % Baso % (Auto) 0.7 (0-2) % Lymph # (Auto) 0.4 L (1.2-4.9) X10*3/uL Alfalfa # (Auto) 0.5 (0.1-1.2) X10*3/uL Eos # (Auto) 0.0 (0.0-0.4) X10*3/uL Baso # (Auto) 0.0 (0.0-0.2) X10*3/uL Abs Immat Gran (auto) 0.02 (0.00-0.03) X10*3/uL Absolute Neuts (auto) 4.8 (2.0-8.3) x10*3/uL Absolute Nucleated RBC 0.000 (0.0-0.012) X10*3/uL Nucleated RBC % (auto) 0.0 (0.0-0.2) /100WBC Sodium (135-145) mmol/L Potassium (3.3-5.1) mmol/L Chloride (96-108) mmol/L Carbon Dioxide (22-29) mmol/L Anion Gap (12-20) BUN (9-16) mg/dL Creatinine (0.5-1.4) mg/dL Estim Creat Clear Calc Estimated GFR Random Glucose (60-115) mg/dL Calcium (8.4-10.2) mg/dL Magnesium (1.6-2.6) mg/dL Total Bilirubin (0.0-1.0) mg/dL AST (5-31) U/L ALT (0-31) U/L Alkaline Phosphatase (39-117) U/L Total Protein (6.5-8.0) g/dL Albumin (3.5-5.0) g/dL Influenza Type A (PCR) POSITIVE A (Negative) Influenza Type B (PCR) NEGATIVE (Negative) RSV RNA Qual (PCR) NEGATIVE (Negative) SARS-CoV-2 RNA (RT-PCR) NEGATIVE (Negative) S. pyogenes GrpA MARNIE Negative (Negative) 03/30/25 Range/Units 11:51 WBC (4.8-10.8) X10*3/uL RBC (4.20-5.50) X10*6/uL Hgb (12.0-16.0) g/dl Hct (37.0-47.0) % MCV (80.0-98.0) fL MCH (27.0-33.0) pg MCHC (31.0-35.0) g/dl RDW (11.0-16.0) % Plt Count (160-400) X10*3/uL MPV (9.4-12.3) fL Immature Gran % (Auto) (0.0-0.4) % Neut % (Auto) (45-73) % Lymph % (Auto) (20-40) % Alfalfa % (Auto) (2-11) % Eos % (Auto) (0-4) % Baso % (Auto) (0-2) % Lymph # (Auto) (1.2-4.9) X10*3/uL Alfalfa # (Auto) (0.1-1.2) X10*3/uL Eos # (Auto) (0.0-0.4) X10*3/uL Baso # (Auto) (0.0-0.2) X10*3/uL Abs Immat Gran (auto) (0.00-0.03) X10*3/uL Absolute Neuts (auto) (2.0-8.3) x10*3/uL Absolute Nucleated RBC (0.0-0.012) X10*3/uL Nucleated RBC % (auto) (0.0-0.2) /100WBC Sodium 138 (135-145) mmol/L Potassium 4.0 (3.3-5.1) mmol/L Chloride 106 (96-108) mmol/L Carbon Dioxide 22 (22-29) mmol/L Anion Gap 14 (12-20) BUN 8 L (9-16) mg/dL Creatinine 0.86 (0.5-1.4) mg/dL Estim Creat Clear Calc 96.6 Estimated GFR > 60 Random Glucose 98 (60-115) mg/dL Calcium 9.1 (8.4-10.2) mg/dL Magnesium 1.8 (1.6-2.6) mg/dL Total Bilirubin 0.5 (0.0-1.0) mg/dL AST 48 H (5-31) U/L ALT 72 H (0-31) U/L Alkaline Phosphatase 62 (39-117) U/L Total Protein 6.9 (6.5-8.0) g/dL Albumin 4.5 (3.5-5.0) g/dL Influenza Type A (PCR) (Negative) Influenza Type B (PCR) (Negative) RSV RNA Qual (PCR) (Negative) SARS-CoV-2 RNA (RT-PCR) (Negative) S. pyogenes GrpA MARNIE (Negative) Independent Interpretation I performed an independent interpretation of an: Plain X-Ray Interpretation: I independently viewed the x-ray and agree with the radiology report Radiology Impression Discussion of test interpretation with radiology: I have reviewed the radiologist's reading. Radiologist Impression: [place] [id number] XRay Report Signed Patient: Nica Marc MR#: [id number] : 1985 Acct:[id number] Age/Sex: 39 / F ADM Date: 03/30/25 Loc: .ED Attending Dr: Ordering Physician: Meka Andrews Date of Service: 03/30/25 Procedure(s): XR chest 2V Accession Number(s): [id number] cc: Meka Andrews; Name,Tobin ROBLES~ Reason for Exam: cough CLINICAL HISTORY: cough 2 view chest x-ray. Comparison: CR/VA/SR - XR CHEST 2V - 01/27/24 08:07 EDT Findings: The lungs are adequately expanded. No focal consolidation. No effusion or pneumothorax. Cardiac and mediastinal contours are within normal limits. No acute osseous abnormality Impression: No acute process. Independent Historian Clinical information obtained from an independent historian. History obtained from or confirmed by: Spouse Prescription Management I considered prescription management with: Antiviral discussed Tamiflu with patient and family and she declined Discharge Plan Discharge Clinical Impression: Influenza A Patient Disposition: Home, Self-Care Instructions: Influenza (ED), Droplet Precautions (ED) Additional Instructions: Your test is positive for influenza A Your test for influenza B, RSV, COVID and strep are negative Your blood work shows that your liver enzymes are mildly elevated. This can happen with a viral illness. Please follow-up with your PCP in several weeks to have these redrawn Your x-ray shows no signs of pneumonia Alternate Motrin and Tylenol for any pain or fever Increase fluids, rest Return for SOB, chest pain, vomiting despite nausea medicine, abdominal pain Prescriptions: New ondansetron 4 mg tablet,disintegrating 4 mg PO Q6H PRN (Reason: nausea and vomiting) Qty: 12 0RF No Action cyanocobalamin (vitamin B-12) 1,000 mcg tablet 1,000 mcg PO DAILY Qty: 30 2RF lorazepam 0.5 mg tablet 1 tab PO DAILY PRN (Reason: Anxiety) oxycodone-acetaminophen [Endocet] 5-325 mg tablet 1 tab PO Q6H PRN (Reason: pain (scale score 7-10)) Qty: 10 0RF fluticasone propion-salmeterol [Advair Diskus] 250-50 mcg/dose blister with device 1 inh inhalation BID Qty: 60 0RF albuterol sulfate 90 mcg/actuation HFA aerosol inhaler 2 puff inhalation Q6H PRN (Reason: shortness of breath or wheezing) Qty: 8.5 0RF prednisone 20 mg tablet 40 mg PO DAILY Qty: 8 0RF benzonatate 100 mg capsule 100 mg PO TID PRN (Reason: cough) Qty: 30 0RF linaclotide 145 mcg capsule 145 mcg PO DAILY Qty: 30 1RF Referrals: Name,MD Tobin [Primary Care Provider, Internal Medicine] Stand Alone Forms: Work/School Release Print Language: Bolivian
[2025-03-30 11:28] LABS: Resp Syncy Virus RNA Qual PCR NEGATIVE (Negative); SARS COV2 PCR INHOUSE NEGATIVE (Negative)
[2025-03-30 11:29] LABS: Hematocrit 36.7 % (37.0-47.0); Hemoglobin 12.5 g/dl (12.0-16.0); Imm Gran Abs Auto 0.02 X10*3/uL (0.00-0.03); Imm Gran Pct Auto 0.4 % (0.0-0.4); Lymphocytes Absolute Auto 0.4 X10*3/uL (1.2-4.9); Mean Corpuscular HGB Conc 34.1 g/dl (31.0-35.0); Mean Corpuscular Hemoglobin 30.8 pg (27.0-33.0); Mean Corpuscular Volume 90.4 fL (80.0-98.0); NRBC Abs Auto 0.000 X10*3/uL (0.0-0.012); NRBC Pct Auto 0.0 /100WBC (0.0-0.2); Platelet Count 200 X10*3/uL (160-400); Red Blood Count 4.06 X10*6/uL (4.20-5.50); White Blood Count 5.7 X10*3/uL (4.8-10.8)
[2025-03-30 12:09] LABS: IDNOW Serial# 58CA691E; Strep A Nucleic Acid Negative (Negative)
[2025-03-30 12:25] LABS: Alanine Aminotransferase 72 U/L (0-31); Albumin Level 4.5 g/dL (3.5-5.0); Alkaline Phosphatase 62 U/L (39-117); Anion Gap 14 (12-20); Aspartate Amino Transferase 48 U/L (5-31); Blood Urea Nitrogen 8 mg/dL (9-16); Calcium 9.1 mg/dL (8.4-10.2); Carbon Dioxide 22 mmol/L (22-29); Chloride 106 mmol/L (96-108); Creatinine Clr Calc Pharmacy 96.6; Estimated Glomerular Filt Rate > 60; Magnesium 1.8 mg/dL (1.6-2.6); Potassium 4.0 mmol/L (3.3-5.1); Sodium 138 mmol/L (135-145); Total Protein 6.9 g/dL (6.5-8.0)
[2025-03-30 12:31] VITALS: BP 106/71; PULSE 80; RESP 18; TEMP 37.1; O2SAT 96
[2025-03-30 12:51] VITALS: BP 106/71; PULSE 80; RESP 18; TEMP 37.1; O2SAT 96
== END 2025-03-30 13:01 | disposition home or self-care (01) ==
PROVIDERS: Nurse Practitioner Family; Physician Assistant Medical; Emergency Provider Emergency Medicine Emergency Medical Services; PCP Internal Medicine Geriatric Medicine
DX: J10.1 Influenza due to other identified influenza virus with other respiratory manifestations (principal); R05.9 Cough, unspecified; Z03.818 Encounter for observation for suspected exposure to other biological agents ruled out; J45.909 Unspecified asthma, uncomplicated; Z79.899 Other long term (current) drug therapy
CPT/HCPCS: 36415; 71046; 80053; 83735; 85025; 87637; 87651; 99283; 99284

== ENCOUNTER → 2025-03-30 11:03 | Outpatient (BNV) | payer OTHER, SELFPAY | PROVIDERS: Emergency Provider Emergency Medicine Emergency Medical Services; PCP Internal Medicine Geriatric Medicine; Visit Provider Radiology Vascular & Interventional Radiology | DX: R05.9 Cough, unspecified (principal) | CPT/HCPCS: 71046 ==